=== PATIENT | female | born 1980 | race Caucasian/White ===

== ENCOUNTER 2025-01-22 14:55 | Inpatient (IN) | payer OTHER, SELFPAY ==
--- NOTE | 2025-01-22 | ECG_ITS ---
Test Reason : DIZZINESS Blood Pressure : */* mmHG Vent. Rate : 104 BPM Atrial Rate : 104 BPM P-R Int : 118 ms QRS Dur : 88 ms QT Int : 348 ms P-R-T Axes : 72 54 34 degrees QTcB Int : 457 ms Sinus tachycardia Nonspecific ST and T wave abnormality Abnormal ECG No previous ECGs available Referred By: Generic ED Physician Electronically Signed By: Gino Hilliard
--- NOTE | ~2025-01-22 | CT_ITS ---
CLINICAL HISTORY: abdominal pain --- Additional Notes or Special Instructions: No preg @ 19:55, notified provider CT abdomen and pelvis with contrast Comparison: None provided Findings: Hiatal hernia. Hepatic steatosis. Prior cholecystectomy. Left liver lobe medial segment abutting the ligamentum teres area low attenuation, 1.9 by 1.4 cm; focal fatty infiltration. The left and right kidney asymmetric in enhancement. No nephroliths identified. The spleen pancreas are homogeneous in attenuation. Segmental mural thickening of the ascending and transverse colon. The appendix is within normal limits. The uterus is within normal limits. No acute fracture. IMPRESSION: 1. Hiatal hernia. 2. Hepatic steatosis. 3. Segmental mural thickening of the ascending and transverse colon; nonspecific colitis (bacterial colitis versus inflammatory bowel disease). This document has been electronically signed by: Nahid Fragoso MD on 01/22/2025 22:14:20
[2025-01-22 14:58] VITALS: BP 186/84; PULSE 103; RESP 20; TEMP 37; O2SAT 99; BMI 27.2
[2025-01-22 15:39] LABS: MANUAL DIFF FLAG NO
[2025-01-22 15:48] LABS: Hematocrit 36.5 % (37.0-47.0); Hemoglobin 12.2 g/dl (12.0-16.0); Imm Gran Abs Auto 0.03 X10*3/uL (0.00-0.03); Imm Gran Pct Auto 0.4 % (0.0-0.4); Lymphocytes Absolute Auto 0.3 X10*3/uL (1.2-4.9); Mean Corpuscular HGB Conc 33.4 g/dl (31.0-35.0); Mean Corpuscular Hemoglobin 34.9 pg (27.0-33.0); Mean Corpuscular Volume 104.3 fL (80.0-98.0); NRBC Abs Auto 0.000 X10*3/uL (0.0-0.012); NRBC Pct Auto 0.0 /100WBC (0.0-0.2); Platelet Count 137 X10*3/uL (160-400); Red Blood Count 3.50 X10*6/uL (4.20-5.50); White Blood Count 7.9 X10*3/uL (4.8-10.8)
[2025-01-22 15:55] LABS: COVID-19 Test Negative (Negative); IDNOW Serial# 6674DD1D
[2025-01-22 16:03] LABS: IDNOW Serial# 08D9AD1C; Influenza B2 Negative (Negative)
[2025-01-22 16:24] LABS: Troponin-I High Sensitivity < 2.7 ng/L (<3.5-17.0)
[2025-01-22 16:26] LABS: Alanine Aminotransferase 52 U/L (0-31); Albumin Level 5.1 g/dL (3.5-5.0); Anion Gap 30 (12-20); Aspartate Amino Transferase 188 U/L (5-31); Blood Urea Nitrogen 8 mg/dL (9-16); Calcium 8.2 mg/dL (8.4-10.2); Carbon Dioxide 9 mmol/L (22-29); Chloride 104 mmol/L (96-108); Creatinine Clr Calc Pharmacy 114.8; Estimated Glomerular Filt Rate > 60; Lipase 11 U/L (8-78); Magnesium 2.0 mg/dL (1.6-2.6); Potassium 4.7 mmol/L (3.3-5.1); Sodium 138 mmol/L (135-145); Total Protein 8.1 g/dL (6.5-8.0)
[2025-01-22 17:29] LABS: Alkaline Phosphatase 56 U/L (39-117)
--- NOTE | 2025-01-22 18:30 | ED.GENADULT ---
HPI - General Adult General Chief complaint: General Medical Stated complaint: ultrasound Time Seen by Provider: 01/22/25 18:23 Source: patient Mode of arrival: ambulatory Limitations: no limitations History of Present Illness ED Provider: Dr. Hyde [facility] narrative: 44-year-old female history of alcohol use disorder presented hospital today for evaluation of fatigue, malaise. She had a near syncopal episode here today. She is attending a family event. Patient stated that she has been having nausea and vomiting. She has not been able to eat much food for the past week or so. She has full history of cholecystectomy in the past. Denies any dysuria. He does complain of generalized abdominal pain. Related Data Allergies Allergy/AdvReac Type Severity Reaction Status Date / Time No Known Allergies Allergy Unverified 01/22/25 14:59 Review of Systems Review of Systems: Pertinent review of systems as mentioned in HPI. All other system otherwise negative. [facility] Past Medical History [facility] Narrative: Medical history as mentioned in HPI Social History Social History Smoked in Last 30 Days: No Use of substances other than those prescribed or required for medical reasons: No Advance Directives: No Advance Directives Information Provided: No Patient : No Physical Exam ED Exam Exam: General: Pleasant, no distress, interacting appropriately Head: Normacephalic, atraumatic ENT: oral mucosa moist, neck supple, no tracheal deviation Cardiovascular: Tachycardic rate, regular rhythm, no murmurs, rubbing, gallops Respiratory: Appears tachypneic, CTAB Gastrointestinal: Soft, non distended, generalized abdominal pain on palpation Neurological: Awake and alert, no facial droop noted Skin: Warm and dry Psychiatric: Appropriate mood and thoughts Vital Signs: Vital Signs - 24 hr 01/22/25 14:58 01/22/25 20:07 Temperature 98.6 F 98.4 F Pulse Rate 103 H 106 H Respiratory Rate 20 18 Blood Pressure 186/84 H 158/62 H Pulse Oximetry 99 100 Oxygen Delivery Method Room Air Room Air BMI result Body Mass Index 27.2 Medications Administered Generic Name Dose Route Start Last Admin Trade Name Freq PRN Reason Stop Dose Admin Dextrose/Sodium Chloride 1,000 mls @ 100 mls/hr 01/22/25 22:15 01/22/25 22:29 D51/2ns IVCONT 100 mls/hr .Q10H MARISOL Administration Discontinued Medications Generic Name Dose Route Start Last Admin Trade Name Freq PRN Reason Stop Dose Admin Thiamine HCl 100 mg/ Sodium 101 mls @ 202 mls/hr 01/22/25 18:42 01/22/25 20:07 Chloride IV 01/22/25 19:11 Infused ONCE ONE Infusion Folic Acid 1 mg/ Sodium 50.2 mls @ 100.4 mls/hr 01/22/25 18:42 01/22/25 21:01 Chloride IV 01/22/25 19:11 Infused ONCE ONE Infusion Sodium Chloride 1,000 mls @ 999 mls/hr 01/22/25 19:30 01/22/25 21:34 Ns IV 01/22/25 20:30 Infused .Q1H1M MARISOL Infusion Dextrose 1,000 mls @ 100 mls/hr 01/22/25 21:30 01/22/25 22:25 D10 IVCONT Infused .Q10H MARISOL Infusion Iohexol 100 ml 01/22/25 21:32 01/22/25 21:38 Iohexol 350 Mg/Ml 100 Ml Infus..Btl IV 01/22/25 21:33 85 ml ONCE ONE Administration Metoclopramide HCl 5 mg 01/22/25 18:41 01/22/25 19:04 Metoclopramide Hcl 10 Mg/2 Ml Vial IVPUSH 01/22/25 18:42 5 mg ONCE ONE Administration Sodium Bicarbonate 50 meq 01/22/25 19:07 01/22/25 20:04 Sodium Bicarbonate 8.4% 50 Meq/50 Ml Syringe IVPUSH 01/22/25 19:08 50 meq ONCE ONE Administration Medical Decision Making Medical Decision Making [facility] Narrative: 44-year-old female presented hospital today for evaluation of near syncopal episode nausea vomiting generalized malaise and fatigue. Patient's lab work was significant for metabolic acidosis bicarb of 9. PH is 7.18. Lactic acid is not elevated. I suspect patient is likely tachypneic due to low bicarb. Slightly compensating from respiratory standpoint. An amp of bicarb was given to the patient. Patient does have some signs of elevated ketones. It started the patient on D5 half-normal saline. She did receive a L IV fluid. Patient stated that she is feeling a little bit better at this time. Repeat VBG shows pH is 7.35. Anion gap is closing at 22. Bicarb has climbed to 12. At this time we will plan to admit the patient to the hospital. I think this is anion gap metabolic acidosis secondary to ketosis. Differential Diagnosis Differential Diagnoses: The differential diagnosis associated with the presentation includes Lactic acidosis, ketosis, diabetes, DKA, starvation ketosis Lab Data MDM Lab Attestation statement: I reviewed the patient's lab results. 01/22/25 15:27 01/22/25 23:42 Labs: Lab Results 01/22/25 01/22/25 01/22/25 Range/Units 15:27 18:50 19:00 WBC 7.9 (4.8-10.8) X10*3/uL RBC 3.50 L (4.20-5.50) X10*6/uL Hgb 12.2 (12.0-16.0) g/dl Hct 36.5 L (37.0-47.0) % MCV 104.3 H (80.0-98.0) fL MCH 34.9 H (27.0-33.0) pg MCHC 33.4 (31.0-35.0) g/dl RDW 16.1 H (11.0-16.0) % Plt Count 137 L (160-400) X10*3/uL MPV 8.8 L (9.4-12.3) fL Immature Gran % (Auto) 0.4 (0.0-0.4) % Neut % (Auto) 89.5 H (45-73) % Lymph % (Auto) 3.9 L (20-40) % [place] % (Auto) 5.7 (2-11) % Eos % (Auto) 0.0 (0-4) % Baso % (Auto) 0.5 (0-2) % Lymph # (Auto) 0.3 L (1.2-4.9) X10*3/uL [place] # (Auto) 0.5 (0.1-1.2) X10*3/uL Eos # (Auto) 0.0 (0.0-0.4) X10*3/uL Baso # (Auto) 0.0 (0.0-0.2) X10*3/uL Abs Immat Gran (auto) 0.03 (0.00-0.03) X10*3/uL Absolute Neuts (auto) 7.0 (2.0-8.3) x10*3/uL Absolute Nucleated RBC 0.000 (0.0-0.012) X10*3/uL Nucleated RBC % (auto) 0.0 (0.0-0.2) /100WBC VBG pH 7.18 L* (7.32-7.43) VBG pCO2 26 mmHg VBG pO2 54 mmHg VBG HCO3 10 L (22-26) mmol/L VBG O2 Saturation 71.0 % VBG Base Excess -16.5 mmol/L Sodium 138 (135-145) mmol/L Potassium 4.7 (3.3-5.1) mmol/L Chloride 104 (96-108) mmol/L Carbon Dioxide 9 L* (22-29) mmol/L Anion Gap 30 H (12-20) BUN 8 L (9-16) mg/dL Creatinine 0.64 (0.5-1.4) mg/dL Estim Creat Clear Calc 114.8 Estimated GFR > 60 Random Glucose 96 (60-115) mg/dL Osmolality (281-305) mosm/kg Lactic Acid 1.3 (0.5-2.0) mmol/L Calcium 8.2 L (8.4-10.2) mg/dL Magnesium 2.0 (1.6-2.6) mg/dL Total Bilirubin 1.6 H (0.0-1.0) mg/dL AST 188 H (5-31) U/L ALT 52 H (0-31) U/L Alkaline Phosphatase 56 (39-117) U/L Troponin I High Sens < 2.7 (<3.5-17.0) ng/L Total Protein 8.1 H (6.5-8.0) g/dL Albumin 5.1 H (3.5-5.0) g/dL Lipase 11 (8-78) U/L Beta-Hydroxybutyrate 9.89 H (0.02-0.27) mmol/L Beta HCG, Quant < 2 mIU/mL Urine Color Urine Appearance Urine pH (5.0-9.0) Ur Specific [place] (1.005-1.025) Urine Protein (Neg-Trace) mg/dL Urine Glucose (UA) (Negative) mg/dL Urine Ketones (Negative) mg/dL Urine Blood (Negative) Urine Nitrite (Negative) Ur Leukocyte Esterase (Negative) Urine RBC (0-2) /HPF Urine WBC (0-5) /HPF Ur Squamous Epith Cells (0-2) /HPF Urine Bacteria (None Seen) Hyaline Casts (0-2) /LPF Salicylates (15-30) mg/dL Ethyl Alcohol < 10 mg/dL COVID-19 (DEMARCO) Negative (Negative) COVID-19 Clin Com See Note Influenza Type A (ISAIAS) Negative (Negative) Influenza Type B (ISAIAS) Negative (Negative) Influenza A & B Note See Note 01/22/25 01/22/25 01/22/25 Range/Units 20:43 20:48 20:54 WBC (4.8-10.8) X10*3/uL RBC (4.20-5.50) X10*6/uL Hgb (12.0-16.0) g/dl Hct (37.0-47.0) % MCV (80.0-98.0) fL MCH (27.0-33.0) pg MCHC (31.0-35.0) g/dl RDW (11.0-16.0) % Plt Count (160-400) X10*3/uL MPV (9.4-12.3) fL Immature Gran % (Auto) (0.0-0.4) % Neut % (Auto) (45-73) % Lymph % (Auto) (20-40) % [place] % (Auto) (2-11) % Eos % (Auto) (0-4) % Baso % (Auto) (0-2) % Lymph # (Auto) (1.2-4.9) X10*3/uL [place] # (Auto) (0.1-1.2) X10*3/uL Eos # (Auto) (0.0-0.4) X10*3/uL Baso # (Auto) (0.0-0.2) X10*3/uL Abs Immat Gran (auto) (0.00-0.03) X10*3/uL Absolute Neuts (auto) (2.0-8.3) x10*3/uL Absolute Nucleated RBC (0.0-0.012) X10*3/uL Nucleated RBC % (auto) (0.0-0.2) /100WBC VBG pH 7.22 L (7.32-7.43) VBG pCO2 27 mmHg VBG pO2 64 mmHg VBG HCO3 11 L (22-26) mmol/L VBG O2 Saturation 87.0 % VBG Base Excess -14.3 mmol/L Sodium 137 (135-145) mmol/L Potassium 4.1 (3.3-5.1) mmol/L Chloride 107 (96-108) mmol/L Carbon Dioxide 9 L* (22-29) mmol/L Anion Gap 25 H (12-20) BUN 6 L (9-16) mg/dL Creatinine 0.70 (0.5-1.4) mg/dL Estim Creat Clear Calc 104.9 Estimated GFR > 60 Random Glucose 97 (60-115) mg/dL Osmolality (281-305) mosm/kg Lactic Acid (0.5-2.0) mmol/L Calcium 7.6 L D (8.4-10.2) mg/dL Magnesium (1.6-2.6) mg/dL Total Bilirubin (0.0-1.0) mg/dL AST (5-31) U/L ALT (0-31) U/L Alkaline Phosphatase (39-117) U/L Troponin I High Sens (<3.5-17.0) ng/L Total Protein (6.5-8.0) g/dL Albumin (3.5-5.0) g/dL Lipase (8-78) U/L Beta-Hydroxybutyrate (0.02-0.27) mmol/L Beta HCG, Quant mIU/mL Urine Color Yellow Urine Appearance Clear Urine pH 6.0 (5.0-9.0) Ur Specific [place] 1.020 (1.005-1.025) Urine Protein 30 (1+) H (Neg-Trace) mg/dL Urine Glucose (UA) Negative (Negative) mg/dL Urine Ketones >=160 (Negative) mg/dL Urine Blood Moderate (2+) H (Negative) Urine Nitrite Negative (Negative) Ur Leukocyte Esterase Negative (Negative) Urine RBC 11-20 H (0-2) /HPF Urine WBC 0-5 (0-5) /HPF Ur Squamous Epith Cells 0-2 (0-2) /HPF Urine Bacteria None Seen (None Seen) Hyaline Casts 0-2 (0-2) /LPF Salicylates (15-30) mg/dL Ethyl Alcohol mg/dL COVID-19 (DEMARCO) (Negative) COVID-19 Clin Com Influenza Type A (ISAIAS) (Negative) Influenza Type B (ISAIAS) (Negative) Influenza A & B Note 01/22/25 01/22/25 Range/Units 23:42 23:48 WBC (4.8-10.8) X10*3/uL RBC (4.20-5.50) X10*6/uL Hgb (12.0-16.0) g/dl Hct (37.0-47.0) % MCV (80.0-98.0) fL MCH (27.0-33.0) pg MCHC (31.0-35.0) g/dl RDW (11.0-16.0) % Plt Count (160-400) X10*3/uL MPV (9.4-12.3) fL Immature Gran % (Auto) (0.0-0.4) % Neut % (Auto) (45-73) % Lymph % (Auto) (20-40) % [place] % (Auto) (2-11) % Eos % (Auto) (0-4) % Baso % (Auto) (0-2) % Lymph # (Auto) (1.2-4.9) X10*3/uL [place] # (Auto) (0.1-1.2) X10*3/uL Eos # (Auto) (0.0-0.4) X10*3/uL Baso # (Auto) (0.0-0.2) X10*3/uL Abs Immat Gran (auto) (0.00-0.03) X10*3/uL Absolute Neuts (auto) (2.0-8.3) x10*3/uL Absolute Nucleated RBC (0.0-0.012) X10*3/uL Nucleated RBC % (auto) (0.0-0.2) /100WBC VBG pH 7.35 (7.32-7.43) VBG pCO2 22 mmHg VBG pO2 106 mmHg VBG HCO3 12 L (22-26) mmol/L VBG O2 Saturation 100.0 % VBG Base Excess -10.7 mmol/L Sodium 139 (135-145) mmol/L Potassium 4.1 (3.3-5.1) mmol/L Chloride 109 H (96-108) mmol/L Carbon Dioxide 12 L (22-29) mmol/L Anion Gap 22 H (12-20) BUN 6 L (9-16) mg/dL Creatinine 0.65 (0.5-1.4) mg/dL Estim Creat Clear Calc 113.0 Estimated GFR > 60 Random Glucose 124 H (60-115) mg/dL Osmolality 299 (281-305) mosm/kg Lactic Acid (0.5-2.0) mmol/L Calcium 7.9 L (8.4-10.2) mg/dL Magnesium (1.6-2.6) mg/dL Total Bilirubin (0.0-1.0) mg/dL AST (5-31) U/L ALT (0-31) U/L Alkaline Phosphatase (39-117) U/L Troponin I High Sens (<3.5-17.0) ng/L Total Protein (6.5-8.0) g/dL Albumin (3.5-5.0) g/dL Lipase (8-78) U/L Beta-Hydroxybutyrate (0.02-0.27) mmol/L Beta HCG, Quant mIU/mL Urine Color Urine Appearance Urine pH (5.0-9.0) Ur Specific [place] (1.005-1.025) Urine Protein (Neg-Trace) mg/dL Urine Glucose (UA) (Negative) mg/dL Urine Ketones (Negative) mg/dL Urine Blood (Negative) Urine Nitrite (Negative) Ur Leukocyte Esterase (Negative) Urine RBC (0-2) /HPF Urine WBC (0-5) /HPF Ur Squamous Epith Cells (0-2) /HPF Urine Bacteria (None Seen) Hyaline Casts (0-2) /LPF Salicylates < 5.0 L (15-30) mg/dL Ethyl Alcohol mg/dL COVID-19 (DEMARCO) (Negative) COVID-19 Clin Com Influenza Type A (ISAIAS) (Negative) Influenza Type B (ISAIAS) (Negative) Influenza A & B Note Critical Care Time Critical Care Time Critical Care Time: Yes Total Critical Care Time: 40 Attestation: Time is exclusive of separately billable procedures. Time includes: direct patient care, patient reassessment, coordination of patient care, interpretation of data (laboratory data, pulse oximetry, arterial blood gases and chest xrays), review of patient's medical records, medical consultation and documentation of patient care. Procedures excluded from critical care time: central intravenous line placement and electrocardiography. Discharge Plan Discharge Clinical Impression: Alcoholic ketosis, Metabolic acidosis, High anion gap Patient Disposition: Admitted As Inpatient Print Language: Samoan
[2025-01-22] MEDS: Thiamine HCL 100 MG in 0.9 % Sodium Chloride 100 ML 202 MG IV (19:00)
[2025-01-22 19:08] LABS: Venous Blood Gas Refer to POC result
[2025-01-22 19:10] LABS: VBG HCO3 10 mmol/L (22-26); VBG O2 % Saturation 71.0 %
--- NOTE | 2025-01-22 19:15 | PC.NURSE ---
assumed care of pt, IV line intact and patent on L AC, pt denies pain at this time. provider at bedside.
--- OUTSIDE RECORDS SUMMARY | 2025-01-22 19:32 | XMS_ITS | Clinical Summary ---
Author Organization [facility] Address [address] [place] [address] [place] [phone] Phone Care Team Providers Care Civil Engineer In Training Name Role Phone Unknown, Unknown Primary Care Provider Gautam quick Allergies No known active allergies Medications buPROPion (WELLBUTRIN XL) 300 MG ER 24 hr tabletIndications :Reactive depression Take 1 tablet (300 mg total) by mouth every morning. 90 tablet 3 Active medroxyPROGESTERo ne (DEPO-PROVERA) 150 mg/mL Syrg IM injection syringeIndication s: control counseling Inject 1 mL (150 mg total) into the muscle every 3 (three) months. 1 mL 1 3 Active cholecalciferol (VITAMIN D3) 2,000 unit capsule Take 1 capsule (2,000 Units total) by mouth daily. 90 capsule 3 3 Active ARIPiprazole (ABILIFY) 2 MG tabletIndications :Generalized anxiety disorder,Moderate episode of recurrent major depressive disorder take one tablet by mouth every day 90 tablet 3 4 Active sertraline (ZOLOFT) 100 MG tablet Take 1.5 tablets (150 mg total) by mouth daily. 135 tablet 3 4 Active LORazepam (ATIVAN) 0.5 MG tabletIndications :Generalized anxiety disorder Take 1 tablet (0.5 mg total) by mouth as directed. 2 x week prn 10 tablet 4 Active semaglutide (OZEMPIC) 0.25 mg or 0.5 mg (2 mg/3 mL) subcutaneous injection penIndications:Di et-controlled diabetes mellitus Inject 0.5 mg under the skin every 7 days. 3 mL 2 4 Active Active Problems Problem Noted Date Diagnosed Date Diet-controlled diabetes mellitus 10/01/2022 Generalized anxiety disorder 09/19/2017 Overweight 09/19/2017 Rectocele 05/28/2017 EWA (stress urinary incontinence, female) 2017 Constipation 05/28/2017 Recurrent major depressive disorder, in full rem ission 02/07/2017 Obesity 02/07/2017 Resolved Problems Problem Noted Date Diagnosed Date Resolved Date Vaginal delivery 02/18/2017 05/28/2017 Post-term , 40-42 weeks of gestation 02/14/20 17 05/28/2017 Multigravida of advanced maternal age 1102/07/2017 05/28/2017 Encounter for supervision of normal in third trimester 02/07/2017 05/28/2017 Immunizations Immunization Administration Dates Next Due Hep A-Hep B 05/12/2012,04/29/2012,01/01/2012 INFLUENZA, SPLIT VIRUS, TRIV ALENT W/ PRESERVATIVE IM 05/11/2014,12/20/2011 Influenza Quadrivalent Preservative Free IM 12/07,01/29/2018 Influenza, Unspecified Formulation 01/09/2017 PPD Test 04/21/2018 Tdap 01/16/2017,12/20/2011 Family History Medical History Relation Comments No Known Problems Daughter No Known Problems Father No Known Problems Mother Seizures Son 1 No Known Problems Son 2 Breast cancer Neg Hx Relation Status Comments Daughter Alive Father Alive Mother Alive Son 1 Alive Son 2 Alive Social History Tobacco Use Types Packs/Day Years Used Date Smoking Tobacco: Former Cigarettes 0.3 23.9 1 993 - 02/18/2016 Passive Smoke Exposure: Never Smokeless Tobacco: Never Tobacco Cessation:Counseling Given: Not Answered Alcohol Use Standard Drinks/Week Comments Yes 0 (1 standard drink = 0.6 oz pur e alcohol) 3 drinks, beer, 2 x month Child or Family Care Answer Date Record ed Do you have problems with on e of the following making it difficult for you to work, study, or receive health care? No 12/12/2022 Education Answer Date Recorded Are you interested in more education? Not on mikhail e 12/21/2024 Are you concerned about learning? Not on file 12/21/2024 No 12/21/2024 No 12/21/2024 Food Answer Date Recorded Within the past 6 months we worried whether our food would run out before we got money to buy more. Never True 12/12/2022 Within the past 6 months the food we bought just didn't last and we didn't have enough money to get more. Never True Residential Stability Answer Date Recor ded What is your housing situation today? I have derick sing 12/12/2022 How many times have you move d in the past 12 months? Zero (I did not move) 12/12/2022 Paying for Meds Answer Date Recorded Do you have trouble paying for medicines? No 12/12/2022 Paying Utility Bills Answer Date Record ed Do you have trouble paying your heating or elect ricity bill? No 12/12/2022 Transportation Answer Date Recorded Has the lack of transportati on kept you from medical appointments or from getting medications? No 12/12/2022 Unemployment Answer Date Recorded Are you currently unemployed or working on a part-time or temporary basis, and looking for work? Yes 12/12/2022 Digital Access Answer Date Recorded No 12/21/2024 No 12/21/2024 Reliable internet access at home? Not on file 12/21/2024 Device with a working camera? Not on file SNAP & WIC Answer Date Recorded Do you receive benefits from SNAP (the Supplemental Nutrition Assistance Program) or the Food Stamp Program? Yes 12/12/2022 SNAP is a free program, interested in learning m ore? Not on file 12/12/2022 Can we help you enroll in SNAP? Not on file 12/12/2022 Do you receive benefits from WIC (the Special Supplemental Nutrition Program for Women, Infants, and Children)? No 0 12/12/2022 WIC is a free program that c an provide you and your family with healthy foods, nutrition education, and more. Even if you are already part of the SNAP nutrition program, you can still apply for WIC benefits. Would you be interested in learning more? No 12/12/2022 Can we help you enroll in WIC? Not on file 0 12/12/2022 Intimate Partner Violence Answer Date R ecorded Denied Basic Needs Not on file 12/12/2022 In the past 12 months have y ou been in a relationship with a person who hurts, threatens, or tries to control you? No 12/12/2022 Worried food would run out Not on file 12/12 In the past 12 months have y ou been in a relationship with a person who hurts, threatens, or tries to control you? 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 Not on file Last Filed Vital Signs Vital Sign Reading Time Taken Comments Blood Pressure 132/88 12/12/2022 3:16 PM EDT Pulse 95 12/12/2022 3:16 PM EDT Temperature 37.1 C (98.7 F) 12/12/2022 3:16 PM EDT Respiratory Rate 16 11/10/2020 9:56 AM EDT Oxygen Saturation 98% 12/12/2022 3:16 PM EDT Inhaled Oxygen Concentration - - Weight 108.4 kg (239 lb) 12/12/2022 3:16 PM EDT Height 172.7 cm (5' 7.99 ) 12/12/2022 3:16 PM ED T Body Mass Index 36.35 12/12/2022 3:16 PM EDT Plan of Treatment Health Maintenance Due Date Last Done Comments HEMOGLOBIN A1C 1978 SMOKING Hx and SMOKELESS TOBACCO SCREENING 07/09/1991 PNEUMOCOCCAL VACCINES (0-49 years) (1 of 2 - PCV) 1997 MAMMOGRAM 06/27/2022 06/27/2020 DIABETIC EYE EXAM 10/01/2022 URINE MICROALBUMIN/CREATININE RATIO 10/01/2022 07/16/2017 BLOOD PRESSURE 06/12/2023 12/12/2022 COLOGUARD 07/09/2023 COLONOSCOPY 07/09/2023 COLORECTAL CANCER SCREENING 07/09/2023 FIT TEST 07/09/2023 FOBT 07/09/2023 SIGMOIDOSCOPY 07/09/2023 VIRTUAL COLONOSCOPY 07/09/2023 DEPRESSION SCREENING 12/13/2023 12/12/2022, 06/21/19 21 LIPID PANEL 12/13/2023 12/12/2022, 10/2022, 05/30/2020 PAP SMEAR 02/23/2024 02/22/2019, 02/05, 07/09/2012, Additional history exists INFLUENZA VACCINE (#1) 2024 0, 01/29/2018, 01/09/2017, Additional history exists COVID-19 VACCINE ( season) 2024 Adult Td,Tdap Booster 01/16/2027 01/16/2017, 012 HEPATITIS A VACCINES Aged Out 05/12/2012, 04/29/2012, 01/01/2012 No longer eligible based on patient's age to complete this topic HEPATITIS C SCREENING Completed 07/22/2016 HIV ONE-TIME SCREENING (18-65 YEARS) Completed 07/22/2016 HIB VACCINES Aged Out No longer eligi ble based on patient's age to complete this topic MENINGOCOCCAL VACCINES (ACWY) Aged Out No longer eligible based on patient's age to complete this topic MENINGOCOCCAL VACCINES (B) Aged Out N o longer eligible based on patient's age to complete this topic Medical Devices Not on file Procedures Procedure Name Priority Date/Time Associated Diagnosis Comments LIPID PANEL Routine 12/12/2022 3:59 PM EDT Diet-controlled diabetes mellitus BI MAMMOGRAM SCREENING WITH TOMOSYNTHESIS WITH CAD (BILATERAL) Routine 06/27/2020 1:26 PM EDT Encounter for screening mammogram for malignant neoplasm of breast PAP TEST Routine 02/22/2019 12:00 AM EST OUTSIDE HIV Routine 07/22/2016 from Last 3 Months or Most Recently Relevant to Health Maintenance Results * (ABNORMAL) Lipid panel (12/12/2022 3:59 PM EDT) HDL 62 mg/dL Comment: Interpretation <40 mg/dL: Low HDL cholesterol (major risk factor for CHD) Greater than or equal to 60 mg/dL: High HDL cholesterol ( negative risk factor for CHD) HDL - cholesterol is affected by a number of factors, e.g. smoking, excerise, hormones, sex and age. CHOLESTEROL 225 0 - 240 mg/dL TRIGLYCERIDES 205(H) 30 - 160 mg/dL LDL 122 50 - 129 mg/dL Comment: LDL levels in terms of risk for coronary heart disease: <100 mg/dL: Optimal 100-129 mg/dL: Near or above optimal 130-159 mg/dL: Borderline high 160-189 mg/dL: High >190 mg/dL: Very High CARDIAC RISK RATIO 3.6 3.3 - 4.4 C [facility] Blood 12/12/2022 3:59 PM EDT 12/12/2022 4:04 PM EDT us Elli Amador NP LAB BLOOD ORDERABLES Final Resu lt [address] [address] * BI MAMMOGRAM SCREENING WITH TOMOSYNTHESIS WITH CAD (BILATERAL) (06/27/2020 1:26 PM EDT) Anatomical Region Laterality Modality Breast Left, Breast Right, Breast Bilateral Bila teral Mammography 06/27/2020 6:38 PM EDT Impressions 06/27/2020 6:41 PM EDT BILATERAL BREASTS: Negative, no evidence of malignancy. Normal interval follow- up is recommended in 12 months. Bi-RADS: BI-RADS CATEGORY: 1 - Negative. DENSITY: There are scattered fibroglandular densities. Narrative 06/27/2020 6:41 PM EDT STUDY: Bilateral screening mammography with tomosynthesis and CAD TECHNIQUE: Bilateral full-field digital screening mammography is obtained and read in conjunction with computer-aided detection. Tomosynthesis as well as 2-D C view imaging were obtained. COMPARISON: None. This is a baseline study. BREAST COMPOSITION: There are scattered areas of fibroglandular density BILATERAL BREASTS: No significant masses, suspicious calcifications or other abnormalities are seen. Procedure Note Rebecca Bartholomew MD - 06/27/2020 STUDY: Bilateral screening mammography with tomosynthesis and CAD TECHNIQUE: Bilateral full-field digital screening mammography is obtainedand read in conjunction with computer-aided detection. Tomosynthesis aswell as 2-D C view imaging were obtained. COMPARISON: None. This is a baseline study. BREAST COMPOSITION: There are scattered areas of fibroglandulardensity BILATERAL BREASTS: No significant masses, suspicious calcifications orother abnormalities are seen. IMPRESSION: BILATERAL BREASTS: Negative, no evidence of malignancy. Normal intervalfollow-up is recommended in 12 months. Bi-RADS: BI-RADS CATEGORY: 1 - Negative. DENSITY: There are scattered fibroglandular densities. 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 CERVICAL, LIQUID BASED SPECIMEN: SPECIMEN ADEQUACY: Satisfactory for evaluation. INTERPRETATION: NEGATIVE FOR INTRAEPITHELIAL LESION OR MALIGNANCY. ADDITIONAL INFORMATION: Consistent with menstrual specimen. This specimen was prescreened using the ArthroCAD Imaging System. Electronically Signed Out By: VESNA Calle(ASCP)FAMILIA Cervical cytology is a screening test primarily for squamous cancers and precursors and has associated false-negative and false-positive results. New technologies such as liquid-based preparations may decrease but will not eliminate all false-negative results. Regular sampling and follow-up of unexplained clinical signs and symptoms are recommended to minimize false negative results. PROCEDURES/ADDENDA HPV Testing (Requested) Ordered Date: 02/23/2019 A. CERVICAL, LIQUID BASED SPECIMEN: Human Papilloma Virus Test Negative for high-risk human papillomavirus types 16, 18, 45 and the Other high risk probe set (Includes 31, 33, 35, 39, 51, 52, 56, 58, 59, 66, 68) by directworx Onclarity HR-HPV analysis. Clinical correlation is advised. This HPV test was performed at [facility], [address] [place] [address]. This test has been FDA approved for SurePath cervical cytology specimens. The accuracy and precision of this test for all other specimen sources has been verified in the Cytopathology Laboratory of the [facility] and has not been cleared or approved by the U.S. Food and Drug Administration. Clinical correlation is advised. CLINICAL HISTORY Date of Last Menstrual Period: 02-22-2019 Other Clinical Conditions: Screening Pap SPECIMEN SOURCE A: CERVICAL, LIQUID BASED SPECIMEN Nimco Shukla [facility] CYTOLOGY ORDERABLES Final Re sult SEE NARRATIVE * OUTSIDE HIV TEST (07/22/2016) HIV - External Neg Historical Provider LAB BLOOD ORDERABLES Geno l Result from Last 3 Months or Most Recently Relevant to Health Maintenance Insurance [facility] A[facility] [place] [place] [id number] [facility] [place] [address] [address] [place] [address] ACO Advance Directives For more information, please contact: [phone] (9AM - 5PM Nathaly/[facility], Friday-Friday) Documents on File Type Date Recorded 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 Healthcare 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 02/20/2017 9:05 AM * Full Code (Presumed) (Latest Code Status on File) Date Activated Date Inactivated Comments 02/17/2017 1:07 AM 02/18/2017 2:55 PM * Full Code (Presumed) Date Activated Date Inactivated Comments 02/17/2017 1:03 AM 02/17/2017 1:07 AM Healthcare Agents on File Name Relationship Healthcare Agent Relationshi p Communication Ignacio Garcia Life Partner .Primary Health Care Agent (Proxy form on file) Care Teams Civil Engineer In Training Relationship Specialty Start Date End Date Unknown, Unknown, PCP - General 07/04/23 Additional Source Comments The information contained in this document represents components of the legal health record. It is not the complete legal health record.[facility]
--- OUTSIDE RECORDS SUMMARY | 2025-01-22 19:32 | XMS_ITS | Encounter Summary ---
Author Organization [facility] Address [address] [facility] [address] [place] [phone] Phone Care Team Providers Care Senior Consulting Manager Name Role Phone Elli Amador NP Primary Care Provider [phone] Sharmaine Keyes MD Unavailable Unknown, Unknown Primary Care Provider Gautam quick Encounter Details Date Type Department Care Team (Late st Contact Info) Description 04/28/2017 Procedure Pass [facility], Ct Scan - [address] [address] Social History Tobacco Use Types Packs/Day Years Used Date Smoking Tobacco: Former Cigarettes 0.1 7 1 04/19/2008 - 02/18/2016 Smokeless Tobacco: Never Alcohol Use Standard Drinks/Week Comments No 0 (1 standard drink = 0.6 oz pur e alcohol) Comments No Sex and Gender Information Value Date Recorded Sex Assigned at Female 04/14/2017 9:38 AM EST Legal Sex Female 9:24 PM EDT Gender Identity Female 04/14/2017 9:38 AM EST Sexual Orientation Straight 04/14/2017 9: 38 AM EST 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 Not on file documented as of this encounter Plan of Treatment Not on file documented as of this encounter Visit Diagnoses Not on filedocumented in this encounter Additional Health Concerns Infection Onset Date Last Indicated Resolved Time CoV-Risk 01/13/2020 01/14/2020 01/27/2020 1:24 AM EDT Assessment Noted Time PHQ-2 Depression Total Score: 0 03/03/20 17 11:52 AM EST documented as of this encounter Care Teams Senior Consulting Manager Relationship Specialty Start Date End Date Elli Amador NP [email or web address] PCP - General Family Medicine 04/28/17 07/03/23 Unknown, Unknown, MD PCP - General 07/04/23 Sharmaine Keyes MD [address] [place] [phone] [email or web address] Insurance Assigned Provider 08/11/19 09/10/20 documented as of this encounter Additional Source Comments The information contained in this document represents components of the legal health record. It is not the complete legal health record.[facility]
--- OUTSIDE RECORDS SUMMARY | 2025-01-22 19:32 | XMS_ITS | Encounter Summary ---
Author Organization [facility] Address [address] [facility] [address] [place] [phone] Phone Care Team Providers Care Vice President Residential Solar Sales Name Role Phone Elli Amador NP Primary Care Provider [phone] Sharmaine Keyes MD Unavailable Unknown, Unknown Primary Care Provider Gautam quick Encounter Details Date Type Department Care Team (Late st Contact Info) Description 02/03/2020 Procedure Pass [facility], [facility] [address] [place] [address] Social History Tobacco Use Types Packs/Day Years Used Date Smoking Tobacco: Former Cigarettes 0.1 7 1 04/19/2008 - 02/18/2016 Smokeless Tobacco: Never Alcohol Use Standard Drinks/Week Comments Yes 0 (1 standard drink = 0.6 oz pur e alcohol) 3 drinks, beer, 2 x month Comments No Sex and Gender Information Value [...] filedocumented in this encounter Additional Health Concerns Assessment Noted Time PHQ-9 Depression Total Score: 14 021 1:09 PM EDT PHQ-2 Depression Total Score: 4 06/21/19 21 1:09 PM EDT documented as of this encounter Care Teams Vice President Residential Solar Sales Relationship Specialty Start Date End Date Elli Amador NP [email or web address] PCP - General Family Medicine 04/28/17 07/03/23 Unknown, Dashawn, PCP - General 07/04/23 Sharmaine Keyes MD [address] [place] [phone] [email or web address] Insurance Assigned Provider 08/11/19 09/10/20 documented as of this encounter Additional Source Comments The information contained in this document represents components of the legal health record. It is not the complete legal health record.[facility]
[2025-01-22 20:07] VITALS: BP 158/62; PULSE 106; RESP 18; TEMP 36.9; O2SAT 100
--- NOTE | 2025-01-22 20:21 | PC.NURSE ---
pt medicated per MAR.
[2025-01-22 20:58] LABS: VBG HCO3 11 mmol/L (22-26); VBG O2 % Saturation 87.0 %
[2025-01-22 21:02] LABS: Venous Blood Gas Refer to POC result
[2025-01-22 21:02] LABS: Appearance Urine Clear; Glucose Urine UA Negative (Negative); PH 6.0 (5.0-9.0); Specific Gravity - Urine 1.020 (1.005-1.025); UMIC TRIGGER UACC YES
[2025-01-22 21:11] LABS: Anion Gap 25 (12-20); Blood Urea Nitrogen 6 mg/dL (9-16); Calcium 7.6 mg/dL (8.4-10.2); Carbon Dioxide 9 mmol/L (22-29); Chloride 107 mmol/L (96-108); Creatinine Clr Calc Pharmacy 104.9; Estimated Glomerular Filt Rate > 60; Potassium 4.1 mmol/L (3.3-5.1); Sodium 137 mmol/L (135-145)
[2025-01-22] MEDS: iohexoL 350 MG/ML 100 ML INFUS..BTL IV (21:38)
[2025-01-22] MEDS: Dextrose 10 % 1,000 ML 100 ML IVCONT (21:44)
[2025-01-22] MEDS: Dextrose 5 % and 0.45 % NaCl 1,000 ML 100 ML IVCONT (22:29)
[2025-01-22 23:58] LABS: Venous Blood Gas Refer to POC result
[2025-01-23] LABS: VBG HCO3 12 mmol/L (22-26); VBG O2 % Saturation 100.0 %
[2025-01-23 00:08] LABS: Osmolality, Serum 299 mosm/kg (281-305)
[2025-01-23 00:24] LABS: Anion Gap 22 (12-20); Blood Urea Nitrogen 6 mg/dL (9-16); Calcium 7.9 mg/dL (8.4-10.2); Carbon Dioxide 12 mmol/L (22-29); Chloride 109 mmol/L (96-108); Creatinine Clr Calc Pharmacy 113.0; Estimated Glomerular Filt Rate > 60; Potassium 4.1 mmol/L (3.3-5.1); Salicylate < 5.0 mg/dL (15-30); Sodium 139 mmol/L (135-145)
--- NOTE | 2025-01-23 00:57 | PM.IMHP ---
History of Present Illness Date of Service: 01/23/25 Attending physician on admission: Luciano Kovacs Chief Complaint: Dizziness Massiel Garcia is a very pleasant 44 years old woman with history of depression and anxiety, not currently taking medications presents to the emergency department after she almost fainted today upon standing up while watching daughter melvi ospina. She also mentioned that she vomited in the morning. Since she has been feeling tired and has been sleeping more than usual. Denied worsening diarrhea, but her stools has been chronically soft. She reported some mild shortness on breath and denied chest pain. Also had an episode pelvic pain. Her last menstrual period finish last week. She has been very weak and has not been eating well lately. Also reported some weight loss. She drinks vodka daily 8-10 shots. Last alcoholic drink was last night. She denied illicit drug use or tobacco smoking. Abdominal surgery history is remarkable for cholecystectomy. She has a history of nephrolithiasis. Denied bloody urine. Has been having urinary frequency. In the ED, she was found to have hypertension and sinus tachycardia. Temperature and oxygen saturation and normal. Blood workup showed no leukocytosis. Hemoglobin is 12.7, MCV 104.3 and platelets 137. Initial pH was 7.18, then 7.22 -> 7.35. CO2 was initially 9 and most recently, 12. Anion gap is elevated. BUN is 6 and creatinine 0.65. LFTs are elevated. Beta hydroxybutyrate is 9 point 89 and test is negative. Blood osmolality is 299. UA showed protein 1+, blood 2+ and RBC 11-20. Testing for COVID-19, influenza are negative. ED tx: Reglan 5 mg IV, thiamine 100 mg IV, folic acid 1 g IV, bicarb 8.4% 50 mEq IV push, NS 1 L bolus, D5/0.45 100 mL/hour Review of Systems Review of Systems: All 12 systems were reviewed and normal except as noted in HPI. PMFSH Social History Patient Tobacco Use Status: Never used Tobacco Smoked in Last 30 Days: No Use of substances other than those prescribed or required for medical reasons: No Advance Directives: No Advance Directives Information Provided: No Nutrition Risks: No Nutritional Risk Patient : No Meds Allergies Allergy/AdvReac Type Severity Reaction Status Date / Time No Known Allergies Allergy Unverified 01/22/25 14:59 Active Medications: Current Medications Acetaminophen (Acetaminophen 325 Mg Tablet) 650 mg PO Q6H PRN PRN Reason: Pain, Mild 1-3,fever,headache Calcium Carbonate (Calcium Carbonate 750 Mg Tab.Chew) 750 mg PO Q4H PRN PRN Reason: Heartburn Enoxaparin Sodium (Enoxaparin Sodium 40 Mg/0.4 Ml Syringe) 40 mg SUBCUT Q24H [facility] Hydromorphone HCl (Hydromorphone Hcl 1 Mg/Ml Syringe) 0.5 mg IVPUSH Q4H PRN; Protocol PRN Reason: Pain, Severe (Pain Scale 7-10) Dextrose/Sodium Chloride (D51/2ns) 1,000 mls @ 125 mls/hr IVCONT .Q8H [facility] Thiamine HCl 100 mg/ Sodium (Chloride) 101 mls @ 202 mls/hr IV DAILY [facility] Folic Acid 1 mg/ Sodium (Chloride) 50.2 mls @ 100.4 mls/hr IV DAILY [facility] Magnesium Hydroxide (Milk Of Magnesia 30 Ml Oral.Susp) 30 ml PO DAILY PRN PRN Reason: Constipation Melatonin (Melatonin 3 Mg Tablet) 6 mg PO BEDTIME PRN PRN Reason: Insomnia Multivitamins/Vitamin C (Multivitamin Tablet) 1 tab PO BEDTIME [facility] Ondansetron HCl (Ondansetron Hcl 4 Mg/2 Ml Vial) 4 mg IVPUSH Q8H PRN PRN Reason: Nausea and Vomiting Sodium Chloride (0.9 % Sodium Chloride Flush 3 Ml Syringe) 3 ml IVFLUSH QSHIFT [facility] Physical Exam Vital Signs and Narrative: Vital Signs: Last Vital Signs Temp 98.4 F 01/22/25 20:07 Pulse 106 H 01/22/25 20:07 Resp 18 01/22/25 20:07 BP 158/62 H 01/22/25 20:07 Pulse Ox 100 01/22/25 20:07 O2 Del Method Room Air 01/22/25 20:07 BMI result Body Mass Index 27.2 General: Alert, oriented, in no acute distress. Well nourished and cooperative. Pleasant. Afebrile. HEENT: Head normocephalic, atraumatic. PER, EOMI. Sclerae anicteric, conjunctiva clear. Oropharynx without erythema or exudate. Mucous membranes moist. Neck: Supple, no lymphadenopathy, or JVD. Heart: RRR, no murmurs, rubs or gallops. Lungs: Clear to auscultation bilaterally. No wheezes, rales, or rhonchi. Normal respiratory effort. Abdomen: Soft, non tenderness, nondistended, normoactive bowel sounds. No hepatosplenomegaly, masses or masses. Extremities: No calf tenderness bilaterally, no swelling Musculoskeletal: Full range of motion. No joint swelling, deformity, or tenderness. Normal muscle tone and strength. Skin: Warm/Dry. No pallor. No jaundice. Neurologic: Alert & oriented x4. Moving all extremities spontaneously. Normal speech. Psychological: Depressed mood and affect. Thought process coherent. Results Labs 01/22/25 15:27 01/22/25 23:42 Labs: Laboratory Results - last 24 hr 01/22/25 01/22/25 01/22/25 15:27 18:50 19:00 MCV 104.3 H MCH 34.9 H MCHC 33.4 RDW 16.1 H Plt Count 137 L MPV 8.8 L Immature Gran % (Auto) 0.4 Neut % (Auto) 89.5 H Lymph % (Auto) 3.9 L [place] % (Auto) 5.7 Eos % (Auto) 0.0 Baso % (Auto) 0.5 Lymph # (Auto) 0.3 L [place] # (Auto) 0.5 Eos # (Auto) 0.0 Baso # (Auto) 0.0 Abs Immat Gran (auto) 0.03 Absolute Neuts (auto) 7.0 Absolute Nucleated RBC 0.000 Nucleated RBC % (auto) 0.0 VBG pH 7.18 L* VBG pCO2 26 VBG pO2 54 VBG HCO3 10 L VBG O2 Saturation 71.0 VBG Base Excess -16.5 Anion Gap 30 H Estim Creat Clear Calc 114.8 Estimated GFR > 60 Random Glucose 96 Osmolality Lactic Acid 1.3 Calcium 8.2 L Magnesium 2.0 Total Bilirubin 1.6 H AST 188 H ALT 52 H Alkaline Phosphatase 56 Troponin I High Sens < 2.7 Total Protein 8.1 H Albumin 5.1 H Lipase 11 Beta-Hydroxybutyrate 9.89 H Beta HCG, Quant < 2 Urine Color Urine Appearance Urine pH Ur Specific [place] Urine Protein Urine Glucose (UA) Urine Ketones Urine Blood Urine Nitrite Ur Leukocyte Esterase Urine RBC Urine WBC Ur Squamous Epith Cells Urine Bacteria Hyaline Casts Salicylates Ethyl Alcohol < 10 COVID-19 (DEMARCO) Negative COVID-19 Clin Com See Note Influenza Type A (ISAIAS) Negative Influenza Type B (ISAIAS) Negative Influenza A & B Note See Note 01/22/25 01/22/25 01/22/25 20:43 20:48 20:54 MCV MCH MCHC RDW Plt Count MPV Immature Gran % (Auto) Neut % (Auto) Lymph % (Auto) [place] % (Auto) Eos % (Auto) Baso % (Auto) Lymph # (Auto) [place] # (Auto) Eos # (Auto) Baso # (Auto) Abs Immat Gran (auto) Absolute Neuts (auto) Absolute Nucleated RBC Nucleated RBC % (auto) VBG pH 7.22 L VBG pCO2 27 VBG pO2 64 VBG HCO3 11 L VBG O2 Saturation 87.0 VBG Base Excess -14.3 Anion Gap 25 H Estim Creat Clear Calc 104.9 Estimated GFR > 60 Random Glucose 97 Osmolality Lactic Acid Calcium 7.6 L D Magnesium Total Bilirubin AST ALT Alkaline Phosphatase Troponin I High Sens Total Protein Albumin Lipase Beta-Hydroxybutyrate Beta HCG, Quant Urine Color Yellow Urine Appearance Clear Urine pH 6.0 Ur Specific [place] 1.020 Urine Protein 30 (1+) H Urine Glucose (UA) Negative Urine Ketones >=160 Urine Blood Moderate (2+) H Urine Nitrite Negative Ur Leukocyte Esterase Negative Urine RBC 11-20 H Urine WBC 0-5 Ur Squamous Epith Cells 0-2 Urine Bacteria None Seen Hyaline Casts 0-2 Salicylates Ethyl Alcohol COVID-19 (DEMARCO) COVID-19 Clin Com Influenza Type A (ISAIAS) Influenza Type B (ISAIAS) Influenza A & B Note 01/22/25 01/22/25 23:42 23:48 MCV MCH MCHC RDW Plt Count MPV Immature Gran % (Auto) Neut % (Auto) Lymph % (Auto) [place] % (Auto) Eos % (Auto) Baso % (Auto) Lymph # (Auto) [place] # (Auto) Eos # (Auto) Baso # (Auto) Abs Immat Gran (auto) Absolute Neuts (auto) Absolute Nucleated RBC Nucleated RBC % (auto) VBG pH 7.35 VBG pCO2 22 VBG pO2 106 VBG HCO3 12 L VBG O2 Saturation 100.0 VBG Base Excess -10.7 Anion Gap 22 H Estim Creat Clear Calc 113.0 Estimated GFR > 60 Random Glucose 124 H Osmolality 299 Lactic Acid Calcium 7.9 L Magnesium Total Bilirubin AST ALT Alkaline Phosphatase Troponin I High Sens Total Protein Albumin Lipase Beta-Hydroxybutyrate Beta HCG, Quant Urine Color Urine Appearance Urine pH Ur Specific [place] Urine Protein Urine Glucose (UA) Urine Ketones Urine Blood Urine Nitrite Ur Leukocyte Esterase Urine RBC Urine WBC Ur Squamous Epith Cells Urine Bacteria Hyaline Casts Salicylates < 5.0 L Ethyl Alcohol COVID-19 (DEMARCO) COVID-19 Clin Com Influenza Type A (ISAIAS) Influenza Type B (ISAIAS) Influenza A & B Note Assessment and Plan (1) Alcoholic ketosis: Status: Acute (2) Metabolic acidosis: Status: Acute (3) High anion gap: Status: Acute Plan Massiel Garcia is a 44 y/o woman who presents to the ED with: High anion gap metabolic acidosis secondary to alcoholic ketoacidosis + starvation ketosis; improving. Continue IV hydration with D5. Encourage oral intake as tolerated. Continue to monitor pH, CO2, urine ketones and hydroxybutyrate. Bilateral alcohol or by ED -will follow results. Alcohol abuse. CIWA. Continue thiamine, folic acid and multivitamin. Phenobarbital as needed. Social work and addiction medicine consult. Elevated LFTs, secondary to alcohol abuse. Alcohol abstinence advised. Continue to monitor LFTs. Microscopic hematuria, recent menstrual period. Depression. Many life stressors. Psychiatric consult -Patient interested starting antidepressants meds and stop drinking alcohol. Code status: Full DVT prophylaxis: Lovenox Patient will need hospitalization for at least 2 midnights for severe acidosis secondary to alcohol and starvation treatment with IV fluids and continuous monitoring of vital signs; she also need close monitoring of CIWA for potential withdrawal symptoms. This documentation was generated using dictation software; minor spreading or avionics manager errors may be present. Quality Stroke Does the patient have a stroke diagnosis?: No VTE Prior VTE?: No VTE Risk Level:: Medical - moderate - high VTE Device Contraindication: Treatment Not Indicated VTE Drug Contraindication: N/A - Med Ordered
[2025-01-23] MEDS: Dextrose 5 % and 0.45 % NaCl 1,000 ML 125 ML IVCONT ×3 (01:10→18:46)
[2025-01-23 05:41] VITALS: BP 140/76; PULSE 81; RESP 12; TEMP 36.9; O2SAT 97
[2025-01-23 07:00] LABS: MANUAL DIFF FLAG NO
[2025-01-23 07:09] LABS: Hematocrit 30.7 % (37.0-47.0); Hemoglobin 10.6 g/dl (12.0-16.0); Imm Gran Abs Auto 0.02 X10*3/uL (0.00-0.03); Imm Gran Pct Auto 0.5 % (0.0-0.4); Lymphocytes Absolute Auto 0.7 X10*3/uL (1.2-4.9); Mean Corpuscular HGB Conc 34.5 g/dl (31.0-35.0); Mean Corpuscular Hemoglobin 35.7 pg (27.0-33.0); Mean Corpuscular Volume 103.4 fL (80.0-98.0); NRBC Abs Auto 0.000 X10*3/uL (0.0-0.012); NRBC Pct Auto 0.0 /100WBC (0.0-0.2); Platelet Count 102 X10*3/uL (160-400); Red Blood Count 2.97 X10*6/uL (4.20-5.50); White Blood Count 4.4 X10*3/uL (4.8-10.8)
[2025-01-23 07:28] LABS: Alanine Aminotransferase 35 U/L (0-31); Albumin Level 4.3 g/dL (3.5-5.0); Alkaline Phosphatase 46 U/L (39-117); Anion Gap 15 (12-20); Aspartate Amino Transferase 105 U/L (5-31); Blood Urea Nitrogen 5 mg/dL (9-16); Calcium 7.8 mg/dL (8.4-10.2); Carbon Dioxide 19 mmol/L (22-29); Chloride 105 mmol/L (96-108); Creatinine Clr Calc Pharmacy 111.3; Estimated Glomerular Filt Rate > 60; Magnesium 1.8 mg/dL (1.6-2.6); Potassium 3.4 mmol/L (3.3-5.1); Sodium 136 mmol/L (135-145); Total Protein 6.5 g/dL (6.5-8.0)
[2025-01-23 08:00] VITALS: PULSE 84; RESP 16
--- NOTE | 2025-01-23 08:31 | PHA.MEDREC ---
Pharmacy Consult ? Medication Reconciliation Pharmacy has completed the medication reconciliation.Med rec complete, patient states not taking any medication at home.
--- NOTE | 2025-01-23 08:54 | PM.EVENT ---
Event Note Date of Service: 01/23/25 Event Note: Patient seen and examined by the hospitalist team this morning Seen and examined again seems very little improving Physical and assessment plan as perh&P Continue IV fluids, CIWA protocol, thiamine folic acid, monitor LFTs Psych/addiction evaluation also pending Time Spent With Patient Time: Total time managing care of this patient today ____ minutes.
[2025-01-23] MEDS: 0.9 % Sodium Chloride Flush 3 ML SYRINGE IVFLUSH ×2 (09:13→16:47)
[2025-01-23 09:14] LABS: Ethyl Alcohol g/dL (%) NONE DETECTED g/dL(%) (NONE DETECTED); Ethyl Alcohol mg/dL NONE DETECTED (NONE DETECTED)
[2025-01-23] MEDS: Thiamine HCL 100 MG in 0.9 % Sodium Chloride 100 ML 202 MG IV (09:48)
--- NOTE | 2025-01-23 11:11 | PC.NURSE ---
transferred into hospital bed, denies pain or discomfort. ate small amount for breakfast, mom at bedside
[2025-01-23 12:00] VITALS: PULSE 72; RESP 16
[2025-01-23 15:39] VITALS: BP 177/92; PULSE 94; RESP 18; TEMP 36.8; O2SAT 97
--- NOTE | 2025-01-23 17:36 | P.CNPS_ITS ---
History of Present Illness Date of Service: 01/23/2025 Chief Complaint: Alcoholic and starvation ketosis Reason for Consult: Anxiety and depression Requesting physician: Sulaiman Waggoner Discussed with referring provider: Yes Sources of Information: patient interviewed and chart reviewed HPI Narrative: 44 year old female, lives with partner and 3 children. She presented to the hospital yesterday with the following: Per medicine admission note. Massiel Garcia is a very pleasant 44 years old woman with history of depression and anxiety, not currently taking medications presents to the emergency department after she almost fainted today upon standing up while watching daughter melvi ospina. She also mentioned that she vomited in the morning. Since she has been feeling tired and has been sleeping more than usual. Denied worsening diarrhea, but her stools has been chronically soft. She reported some mild shortness on breath and denied chest pain. Also had an episode pelvic pain. Her last menstrual period finish last week. She has been very weak and has not been eating well lately. Also reported some weight loss. She drinks vodka daily 8-10 shots. Last alcoholic drink was last night. She denied illicit drug use or tobacco smoking. Abdominal surgery history is remarkable for cholecystectomy. She has a history of nephrolithiasis. Denied bloody urine. Has been having urinary frequency. In the ED, she was found to have hypertension and sinus tachycardia. Temperature and oxygen saturation and normal. Blood workup showed no leukocytosis. Hemoglobin is 12.7, MCV 104.3 and platelets 137. Initial pH was 7.18, then 7.22 -> 7.35. CO2 was initially 9 and most recently, 12. Anion gap is elevated. BUN is 6 and creatinine 0.65. LFTs are elevated. Beta hydroxybutyrate is 9 point 89 and test is negative. Blood osmolality is 299. UA showed protein 1+, blood 2+ and RBC 11-20. Testing for COVID-19, influenza are negative. ED tx: Reglan 5 mg IV, thiamine 100 mg IV, folic acid 1 g IV, bicarb 8.4% 50 mEq IV push, NS 1 L bolus, D5/0.45 100 mL/hour Patient is now admitted to medicine for monitoring. Patient reports she has struggled with anxiety and depression since her teenage years. She reports she has had exacerbation of her anxiety lately. Symptoms include panic attacks, palpitations, tremors, excessive worry, irritability. She has a lot of stresses going on. Financially, her children's old school closed suddenly and had to be moved to a new school that is more expensive than the family were used to paying. Her oldest also was accepted to [employer] which is significantly more than the old school. She reports her boyfriend was laid off from work. His work is unpredictable. Her father has been helping out financially. She reports insomnia and poor appetite. Patient denies SI. Patient has also been drinking excessively. She has had alcohol use disorder since early . She had a OUI age 19, then had 2 OUI's in 2009 and lost her license for 5 years. Hasn't had an OUI since. She had a history of cocaine use in the past. She denies SI She denies psychosis. Past Psychiatric History: She was in treatment for depression and anxiety last was over 2 years ago. When she was 13 she OD'd after a break up. No inpatient. Did a PHP. Used to see a instructor psychiatric aide at her PCP's office. Patient used to be on Klonopin but the ASSEMBLY MEMBER didn't want to continue it. Reports prior history of Lexapro. Medical Evaluation Reviewed: Yes Personal & Social History: Lives in [facility] with boyfriend and 3 children age 15, 12 and 7. 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 Boyfriend works construction. Parents supportive. [facility] Family History: Alcohol use on both sides of the family Substance History: Alcohol current. Past cocaine Trauma History: Denies Diagnostics Vital Signs (24Hr): Vital Signs - 24 hr 01/22/25 20:07 01/23/25 05:41 01/23/25 08:00 Temperature 98.4 F 98.4 F Pulse Rate 106 H 81 84 Respiratory Rate 18 12 16 Blood Pressure 158/62 H 140/76 H Pulse Oximetry 100 97 Oxygen Delivery Method Room Air Room Air 01/23/25 12:00 01/23/25 15:39 Temperature 98.3 F Pulse Rate 72 94 Respiratory Rate 16 18 Blood Pressure 177/92 H Pulse Oximetry 97 Oxygen Delivery Method Room Air BMI result Body Mass Index 27.2 Labs 01/23/25 06:31 01/23/25 06:31 Labs: Laboratory Results - last 48 hr 01/22/25 01/22/25 01/22/25 15:27 18:50 19:00 WBC 7.9 RBC 3.50 L Hgb 12.2 Hct 36.5 L MCV 104.3 H MCH 34.9 H MCHC 33.4 RDW 16.1 H Plt Count 137 L MPV 8.8 L Immature Gran % (Auto) 0.4 Neut % (Auto) 89.5 H Lymph % (Auto) 3.9 L [place] % (Auto) 5.7 Eos % (Auto) 0.0 Baso % (Auto) 0.5 Lymph # (Auto) 0.3 L [place] # (Auto) 0.5 Eos # (Auto) 0.0 Baso # (Auto) 0.0 Abs Immat Gran (auto) 0.03 Absolute Neuts (auto) 7.0 Absolute Nucleated RBC 0.000 Nucleated RBC % (auto) 0.0 VBG pH 7.18 L* VBG pCO2 26 VBG pO2 54 VBG HCO3 10 L VBG O2 Saturation 71.0 VBG Base Excess -16.5 Sodium 138 Potassium 4.7 Chloride 104 Carbon Dioxide 9 L* Anion Gap 30 H BUN 8 L Creatinine 0.64 Estim Creat Clear Calc 114.8 Estimated GFR > 60 Random Glucose 96 Osmolality Lactic Acid 1.3 Calcium 8.2 L Magnesium 2.0 Total Bilirubin 1.6 H AST 188 H ALT 52 H Alkaline Phosphatase 56 Troponin I High Sens < 2.7 Total Protein 8.1 H Albumin 5.1 H Lipase 11 Beta-Hydroxybutyrate 9.89 H Beta HCG, Quant < 2 Urine Color Urine Appearance Urine pH Ur Specific [place] Urine Protein Urine Glucose (UA) Urine Ketones Urine Blood Urine Nitrite Ur Leukocyte Esterase Urine RBC Urine WBC Ur Squamous Epith Cells Urine Bacteria Hyaline Casts Salicylates Ethylene Glycol Volat Analys Perform On Ethyl Alcohol < 10 Ethyl Alcohol mg/dL Ethyl Alcohol g/dL Isopropyl Alc, Quant Acetone Level COVID-19 (DEMARCO) Negative COVID-19 Clin Com See Note Influenza Type A (ISAIAS) Negative Influenza Type B (ISAIAS) Negative Influenza A & B Note See Note 01/22/25 01/22/25 01/22/25 20:43 20:48 20:54 WBC RBC Hgb Hct MCV MCH MCHC RDW Plt Count MPV Immature Gran % (Auto) Neut % (Auto) Lymph % (Auto) [place] % (Auto) Eos % (Auto) Baso % (Auto) Lymph # (Auto) [place] # (Auto) Eos # (Auto) Baso # (Auto) Abs Immat Gran (auto) Absolute Neuts (auto) Absolute Nucleated RBC Nucleated RBC % (auto) VBG pH 7.22 L VBG pCO2 27 VBG pO2 64 VBG HCO3 11 L VBG O2 Saturation 87.0 VBG Base Excess -14.3 Sodium 137 Potassium 4.1 Chloride 107 Carbon Dioxide 9 L* Anion Gap 25 H BUN 6 L Creatinine 0.70 Estim Creat Clear Calc 104.9 Estimated GFR > 60 Random Glucose 97 Osmolality Lactic Acid Calcium 7.6 L D Magnesium Total Bilirubin AST ALT Alkaline Phosphatase Troponin I High Sens Total Protein Albumin Lipase Beta-Hydroxybutyrate Beta HCG, Quant Urine Color Yellow Urine Appearance Clear Urine pH 6.0 Ur Specific [place] 1.020 Urine Protein 30 (1+) H Urine Glucose (UA) Negative Urine Ketones >=160 Urine Blood Moderate (2+) H Urine Nitrite Negative Ur Leukocyte Esterase Negative Urine RBC 11-20 H Urine WBC 0-5 Ur Squamous Epith Cells 0-2 Urine Bacteria None Seen Hyaline Casts 0-2 Salicylates Ethylene Glycol Volat Analys Perform On Ethyl Alcohol Ethyl Alcohol mg/dL Ethyl Alcohol g/dL Isopropyl Alc, Quant Acetone Level COVID-19 (DMEARCO) COVID-19 Clin Com Influenza Type A (ISAIAS) Influenza Type B (ISAIAS) Influenza A & B Note 01/22/25 01/22/25 01/23/25 23:42 23:48 01:25 WBC RBC Hgb Hct MCV MCH MCHC RDW Plt Count MPV Immature Gran % (Auto) Neut % (Auto) Lymph % (Auto) [place] % (Auto) Eos % (Auto) Baso % (Auto) Lymph # (Auto) [place] # (Auto) Eos # (Auto) Baso # (Auto) Abs Immat Gran (auto) Absolute Neuts (auto) Absolute Nucleated RBC Nucleated RBC % (auto) VBG pH 7.35 VBG pCO2 22 VBG pO2 106 VBG HCO3 12 L VBG O2 Saturation 100.0 VBG Base Excess -10.7 Sodium 139 Potassium 4.1 Chloride 109 H Carbon Dioxide 12 L Anion Gap 22 H BUN 6 L Creatinine 0.65 Estim Creat Clear Calc 113.0 Estimated GFR > 60 Random Glucose 124 H Osmolality 299 Lactic Acid Calcium 7.9 L Magnesium Total Bilirubin AST ALT Alkaline Phosphatase Troponin I High Sens Total Protein Albumin Lipase Beta-Hydroxybutyrate Beta HCG, Quant Urine Color Urine Appearance Urine pH Ur Specific [place] Urine Protein Urine Glucose (UA) Urine Ketones Urine Blood Urine Nitrite Ur Leukocyte Esterase Urine RBC Urine WBC Ur Squamous Epith Cells Urine Bacteria Hyaline Casts Salicylates < 5.0 L Ethylene Glycol NONE DETECTED Volat Analys Perform On WHOLE BLOOD Ethyl Alcohol Ethyl Alcohol mg/dL NONE DETECTED Ethyl Alcohol g/dL NONE DETECTED Isopropyl Alc, Quant NONE DETECTED Acetone Level 29 H COVID-19 (DEMARCO) COVID-19 Clin Com Influenza Type A (ISAIAS) Influenza Type B (ISAIAS) Influenza A & B Note 01/23/25 06:31 WBC 4.4 L RBC 2.97 L Hgb 10.6 L Hct 30.7 L MCV 103.4 H MCH 35.7 H MCHC 34.5 RDW 15.9 Plt Count 102 L D MPV 9.0 L Immature Gran % (Auto) 0.5 H Neut % (Auto) 67.9 Lymph % (Auto) 15.7 L [place] % (Auto) 14.5 H Eos % (Auto) 0.9 Baso % (Auto) 0.5 Lymph # (Auto) 0.7 L [place] # (Auto) 0.6 Eos # (Auto) 0.0 Baso # (Auto) 0.0 Abs Immat Gran (auto) 0.02 Absolute Neuts (auto) 3.0 Absolute Nucleated RBC 0.000 Nucleated RBC % (auto) 0.0 VBG pH VBG pCO2 VBG pO2 VBG HCO3 VBG O2 Saturation VBG Base Excess Sodium 136 Potassium 3.4 Chloride 105 Carbon Dioxide 19 L Anion Gap 15 BUN 5 L Creatinine 0.66 Estim Creat Clear Calc 111.3 Estimated GFR > 60 Random Glucose 136 H Osmolality Lactic Acid Calcium 7.8 L Magnesium 1.8 Total Bilirubin 1.3 H AST 105 H ALT 35 H Alkaline Phosphatase 46 Troponin I High Sens Total Protein 6.5 Albumin 4.3 Lipase Beta-Hydroxybutyrate 2.97 H Beta HCG, Quant Urine Color Urine Appearance Urine pH Ur Specific [place] Urine Protein Urine Glucose (UA) Urine Ketones Urine Blood Urine Nitrite Ur Leukocyte Esterase Urine RBC Urine WBC Ur Squamous Epith Cells Urine Bacteria Hyaline Casts Salicylates Ethylene Glycol Volat Analys Perform On Ethyl Alcohol Ethyl Alcohol mg/dL Ethyl Alcohol g/dL Isopropyl Alc, Quant Acetone Level COVID-19 (DEMARCO) COVID-19 Clin Com Influenza Type A (ISAIAS) Influenza Type B (ISAIAS) Influenza A & B Note Mental Status Exam Mental Status Exam Patient Appearance: Appropriate (hospital gown) Patient Orientation: Person, Place, Time and Situation Level of Consciousness: Awake and Appropriate Patient Behavior: Appropriate, Cooperative and Anxious Mood Description: Anxious and Nervous Affect Description: Anxious Patient Cognition Impaired: No Ability to Follow Directions: Excellent Speech Pattern: Clear and Appropriate Memory Description: Intact Hallucinations: None Delusions: Not Present Thought Process: Intact and Linear Thought Content: positive for Intact, positive for Goal Oriented and positive for Linear Depressive Symptoms: Increased Anxiety, Insomnia, Increased Irritability, Difficulty Sleeping, Changes in Appetite and Loss of Energy Medications Medications Current Medications Acetaminophen (Acetaminophen 325 Mg Tablet) 650 mg PO Q6H PRN PRN Reason: Pain, Mild 1-3,fever,headache Calcium Carbonate (Calcium Carbonate 750 Mg Tab.Chew) 750 mg PO Q4H PRN PRN Reason: Heartburn Enoxaparin Sodium (Enoxaparin Sodium 40 Mg/0.4 Ml Syringe) 40 mg SUBCUT Q24H [facility] Last Admin: 01/23/25 09:16 Dose: 40 mg Hydromorphone HCl (Hydromorphone Hcl 1 Mg/Ml Syringe) 0.5 mg IVPUSH Q4H PRN; Protocol PRN Reason: Pain, Severe (Pain Scale 7-10) Dextrose/Sodium Chloride (D51/2ns) 1,000 mls @ 125 mls/hr IVCONT .Q8H [facility] Last Admin: 01/23/25 10:37 Dose: 125 mls/hr Thiamine HCl 100 mg/ Sodium (Chloride) 101 mls @ 202 mls/hr IV DAILY [facility] Last Infusion: 01/23/25 10:36 Dose: Infused Folic Acid 1 mg/ Sodium (Chloride) 50.2 mls @ 100.4 mls/hr IV DAILY [facility] Last Infusion: 01/23/25 09:48 Dose: Infused Magnesium Hydroxide (Milk Of Magnesia 30 Ml Oral.Susp) 30 ml PO DAILY PRN PRN Reason: Constipation Melatonin (Melatonin 3 Mg Tablet) 6 mg PO BEDTIME PRN PRN Reason: Insomnia Multivitamins/Vitamin C (Multivitamin Tablet) 1 tab PO BEDTIME [facility] Ondansetron HCl (Ondansetron Hcl 4 Mg/2 Ml Vial) 4 mg IVPUSH Q8H PRN PRN Reason: Nausea and Vomiting Pantoprazole Sodium (Pantoprazole Sodium 40 Mg/10 Ml Vial) 40 mg IVPUSH BID@0630,1630 [facility] Last Admin: 01/23/25 16:46 Dose: 40 mg Sodium Chloride (0.9 % Sodium Chloride Flush 3 Ml Syringe) 3 ml IVFLUSH QSHIFT [facility] Last Admin: 01/23/25 16:47 Dose: 3 ml Allergies Allergies Allergy/AdvReac Type Severity Reaction Status Date / Time No Known Allergies Allergy Unverified 01/22/25 14:59 Assessment & Plan Assessment & Plan (1) Generalized anxiety disorder: Status: Acute Code(s): F41.1 - Generalized anxiety disorder (2) Alcohol dependence: Status: Acute Code(s): F10.20 - Alcohol dependence, uncomplicated Plan 44 yo female admitted to the hospital with alcohol related GI symptoms and acidosis. She reports chronic anxiety but she hasn't been in treatment. She is going through financial and family related stress. She is interested in restarting medications. Recommedations: - Priority now is watching for the development of acute withdrawal symptoms and treat accordingly. ANA ROSA. - After patient medically stabilized and GI symptoms under control, can start Sertraline 50 mg daily - Hydroxyzine 25 mg up to BID PRN acute anxiety - Addiction medicine consultation. Total time managing care of this patient today ____ minutes. Patient educated on: diagnosis, medication risk/benefits and substance abuse
--- NOTE | 2025-01-23 17:57 | MHC.RECOVRN ---
Patient had a positive screen for unhealthy alcohol use on admission, subsequently, met with pt to discuss alcohol use, recovery supports, and concerns related to increased risk of alcohol related problems. On approach pt was sitting in bed. She denies current withdrawal symptoms and reports being ?cold and tired? Pt agreed to meet with TW and was pleasant, calm, and engaged during the interview.? Pt reports consuming about 10-12 shots of vodka, typically from 3-9pm daily for several years with her last drink being 01/21/25. ?I don?t usually sleep, I more like, pass out?. Pt educated on the effects alcohol has on sleep and the importance of proper sleep hygiene.? Pt states she will often experience tremors, nausea, and hot/cold flashes when she awakens in the night and will often have an additional shot of vodka. She also reports that at approximately 1pm daily she begins to feel tremulous. She denies using alcohol at work.? Pt reports her primary goal is to remain abstinent from alcohol. She states in the past she has been to programs in [place] and [place] and currently has 3 OUI?s. 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 Discussed how alcohol use has impacted health, including negative impact on mental health and overall physical well being.? Discussed risk and reduction strategies including drinking below the recommended limit.? Provided pt with written resources including information on inpatient and outpatient treatment, YADIEL, harm reduction, recovery coaching and discussed multiple pathways of recovery? 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 declines intervention, YADIEL, or outpatient appt for treatment related to AUD at this time.? Pt was provided with TW?s contact information if questions or concerns arise which she denies at this time.?
[2025-01-23 22:47] VITALS: BP 158/72; PULSE 84; RESP 16; TEMP 36.6; O2SAT 98
[2025-01-24] MEDS: Dextrose 5 % and 0.45 % NaCl 1,000 ML 125 ML IVCONT (03:43)
[2025-01-24 06:04] VITALS: BP 151/81; PULSE 75; RESP 10; TEMP 36.9; O2SAT 98
[2025-01-24] MEDS: 0.9 % Sodium Chloride Flush 3 ML SYRINGE IVFLUSH (07:32)
[2025-01-24] MEDS: Thiamine HCL 100 MG in 0.9 % Sodium Chloride 100 ML 200 MG IV (09:08)
--- NOTE | 2025-01-24 09:37 | MHC.CM.PN ---
CM met with Patient at bedside, in the ED. Patient lives in a house with her Partner and 3 Children ages 7,11,&15 years of age.Patient has the paperwork to fill out to name a HCP Agent but she has not done it as of yet. Patient may benefit from a Recovery Team Consult R/T ETOH; CM has initiated and will follow for dc planning. PCP/SEMICONDUCTOR MANUFACTURING TECHNICIAN is Donna Ramos and Patient's Parents will transport to home at dc.
[2025-01-24 10:20] VITALS: BMI 28.7
[2025-01-24 10:27] LABS: Anion Gap 14 (12-20); Blood Urea Nitrogen < 3 mg/dL (9-16); Calcium 8.4 mg/dL (8.4-10.2); Carbon Dioxide 28 mmol/L (22-29); Chloride 98 mmol/L (96-108); Creatinine Clr Calc Pharmacy 147.6; Estimated Glomerular Filt Rate > 60; Potassium 3.1 mmol/L (3.3-5.1); Sodium 137 mmol/L (135-145)
--- NOTE | 2025-01-24 11:06 | PM.DS ---
DS: Providers Provider Date of Service: 01/24/25 Date of admission: 01/23/25 00:52 Date of discharge: 01/24/25 Primary care physician: Donna Ramos NP Consults: 01/23/25 00:55 Addiction Medicine Provider Routine Consulting Provider: Addiction Covering Reason for consultation: Alcohol abuse Has provider been notified: No Consult to Psychiatry Routine Consulting Provider: [facility] Reason for consultation: Depression, anxiety, alcohol abuse Has provider been notified: No DS: Diagnosis Discharge Diagnosis (1) Generalized anxiety disorder: Status: Acute (2) Alcohol dependence: Status: Acute DS: Summary Hospital Course Hospital Course: HPI: 44 years old woman with history of depression and anxiety, not currently taking medications presents to the emergency department after she almost fainted today upon standing up while watching [employer]. She also mentioned that she vomited in the morning. Since she has been feeling tired and has been sleeping more than usual. Denied worsening diarrhea, but her stools has been chronically soft. She reported some mild shortness on breath and denied chest pain. Also had an episode pelvic pain. Her last menstrual period finish last week. She has been very weak and has not been eating well lately. Also reported some weight loss. She drinks vodka daily 8-10 shots. Last alcoholic drink was last night. She denied illicit drug use or tobacco smoking. Abdominal surgery history is remarkable for cholecystectomy. She has a history of nephrolithiasis. Denied bloody urine. Has been having urinary frequency. In the ED, she was found to have hypertension and sinus tachycardia. Temperature and oxygen saturation and normal. Blood workup showed no leukocytosis. Hemoglobin is 12.7, MCV 104.3 and platelets 137. Initial pH was 7.18, then 7.22 -> 7.35. CO2 was initially 9 and most recently, 12. Anion gap is elevated. BUN is 6 and creatinine 0.65. LFTs are elevated. Beta hydroxybutyrate is 9 point 89 and test is negative. Blood osmolality is 299. UA showed protein 1+, blood 2+ and RBC 11-20. Testing for COVID-19, influenza are negative. ED tx: Reglan 5 mg IV, thiamine 100 mg IV, folic acid 1 g IV, bicarb 8.4% 50 mEq IV push, NS 1 L bolus, D5/0.45 100 mL/hour. Hospital course: 44 y/o woman who presents to the ED with: Patient was admitted for alcohol withdrawal and High anion gap metabolic acidosis secondary to alcoholic ketoacidosis + starvation ketosis, also had acute hypokalemia: ct abd :1. Hiatal hernia.2. Hepatic steatosis.3. Segmental mural thickening of the ascending and transverse colon; nonspecific colitis (bacterial colitis versus inflammatory bowel disease:Started on IV fluids, phenobarb protocol, potassium repleted: With the above management anion gap seems to be improved, patient is tolerating diet, walking fine. Mild hypokalemia patient also received potassium this morning. Patient is tolerating diet, no abdominal pain or nausea vomiting or diarrhea. anemia macrocytic : h/h slightly down,possible mild dilution vs liver dis . Patient denies any melena or any javy bleeding in the stool. moniter cbc. Further workup outpatient. Elevated LFTs, likely secondary to alcohol abuse. Alcohol abstinence advised. LFTs improving ct abd: hepatic stetosis. Microscopic hematuria, recent menstrual period. Consider outpatient repeat UA. Depression. Many life stressors. Psychiatric consult -psychiatric recommended to add sertraline 50 mg p.o. q.d. In addition seen by addiction team added naltrexone. plan: Consider repeating UA outpatient as well as Monitor LFTs and BMP, cbc in 1 week. Sertraline 50 mg q.d. naltrexone as prescribed. potassium 8 meq po qd x4 days. Omeprazole 20 mg p.o. daily, thiamine 100 mg p.o. daily, folic acid 1 mg p.o. daily. Consider outpatient psychiatric follow-up if needed. Above management discussed with the patient in detail length she understand and in agreement with the above plan, time spent 45 minute. Time Attestation Total time managing care of this patient today: 45 mintues. Discharge Coordination Time (in mins): 45 min Quality: Safe Use of Opioids Does Pt have an Active Cancer Diagnosis on the Problem List?: No Quality: Stroke Does the patient have a stroke diagnosis?: No Physical Exam Exam: Exam: Appearance: Alert.? Oriented X3. cvs: rrr, [id number] , no murmur res: clear to auscultation ,no rhonchii or wheezing abd: no rebound or guarding ,nt, bs present. ext pulses present , no cyanosis . neuro: axo3 , nonfocal. Vital Signs: Vital Signs: Last Vital Signs Temp 98.4 F 10/20/25 06:04 Pulse 75 01/24/25 06:04 Resp 10 L 01/24/25 06:04 BP 151/81 H 01/24/25 06:04 Pulse Ox 98 01/24/25 06:04 O2 Del Method Room Air 01/24/25 06:04 BMI result Body Mass Index 28.7 DS: Data Data Completed and Pending Labs on day of discharge: Laboratory Results - last 24 hr 01/22/25 01/24/25 23:42 09:44 Sodium 137 Potassium 3.1 L Chloride 98 Carbon Dioxide 28 Anion Gap 14 BUN < 3 L Creatinine 0.51 Estim Creat Clear Calc 147.6 Estimated GFR > 60 Random Glucose 145 H Calcium 8.4 D Methyl Alcohol Level NONE DETECTED Preliminary micro results at discharge 01/22/25 19:24 Blood Culture - Preliminary Blood - Venous No growth after 24 hours. 01/22/25 18:50 Blood Culture - Preliminary Blood - Venous No growth after 24 hours. Imaging Chest x-ray: Radiologist's impression: ct abd: 1. Hiatal hernia. 2. Hepatic steatosis. 3. Segmental mural thickening of the ascending and transverse colon; nonspecific colitis (bacterial colitis versus inflammatory bowel disease). Discharge Plan Discharge Anticipated Discharge Date/Time: 01/24/25 10:52 Patient Disposition: Home, Self-Care Discharge Diagnosis: Alcohol withdrawal, hypokalemia. Referrals: [facility] [Provider Group, Addiction Medicine] - 3-5 Days Referral Note: Per your request no appointment has been made. Please call [phone] to make an appointment at a time that works for you. You can also walk-in Friday- 8-4:30pm & Friday 10-4:30pm. Problems: Alcohol dependence Donna Ramos NP [Primary Care Provider, Internal Medicine] - 1 Week Discharge Medications: New thiamine HCl (vitamin B1) 100 mg capsule 100 mg PO DAILY Qty: 30 0RF folic acid 1 mg tablet 1 mg PO DAILY Qty: 30 0RF omeprazole 20 mg capsule,delayed release(DR/EC) 20 mg PO DAILY Qty: 60 0RF sertraline 50 mg Tablet 50 mg PO DAILY Qty: 90 0RF potassium chloride 8 mEq capsule, extended release 8 meq PO DAILY Qty: 4 0RF naltrexone 50 mg tablet 50 mg PO DAILY Qty: 30 0RF Rx Instructions: take 1/2 tab daily for three days, then increase to one tab daily gabapentin 100 mg Capsule 100 mg PO BID Qty: 20 0RF Discharge Orders: Discharge Order (Routine); Ordered 01/24/25 Ordered By: Sulaiman Waggoner Diet: Advance to usual diet Activity on Discharge: As tolerated Stand Alone Forms: Patient Portal Discharge page Print Language: Venezuelan Other Ambulatory Orders: Complete Blood Count no Diff (Routine) Timeframe: 1 Week Facility: [facility] - Location: Laboratory Ordered By: Sulaiman Waggoner Comprehensive Met. Panel (Routine) Timeframe: 1 Week Facility: [facility] - Location: Laboratory Ordered By: Sulaiman Waggoner Care Plan Goals: as below. Health Concerns: Consider repeating UA outpatient as well as Monitor LFTs and BMP in 1 week. Sertraline 50 mg q.d. naltrexone as prescribed. Omeprazole 20 mg p.o. daily, thiamine 100 mg p.o. daily, folic acid 1 mg p.o. daily. Consider outpatient psychiatric follow-up if needed. Plan of Treatment: As above. Assessment: As above.
[2025-01-24 11:29] LABS: Hemoglobin A1C 75.0397 umol/L; Total Hemoglobin (HGBA1C) 2823.6754 umol/L
--- NOTE | 2025-01-24 11:29 | HO.ADDICT_ITS ---
History of Present Illness Date of Service: 01/24/2025 Chief Complaint: Alcoholic and starvation ketosis Reason for Consult: AUD Sources of Information: patient interviewed and chart reviewed HPI Narrative: Patient is a 44 year old female who has been medically admitted with alcohol related ketosis. Chart reviewed, not scoring on CIWA,. Seen in room 13 of main ED. Patient is awake, alert, engaged in interview. She reports long history of AUD with few periods of abstinence, when . Most recently she states that she has been drinking 8 shots of vodka every evening once shes home. She notes an increase in amount of alcohol over the last few weeks in response to stress. Previously had been drinking a few beers a night. Denies any history of withdrawal or treatment Reports poor appetite-sometimes going 3 days without eating Poor sleep, increasing anxiety Denies any other substance use. Denies any withdrawal sx, but does report feeling anxious No tremor noted, no diaphoresis or restlessness Denies nausea/vomiting Labs reviewed Past Psychiatric History: She was in treatment for depression and anxiety last was over 2 years ago. When she was 13 she OD'd after a break up. No inpatient. Did a PHP. Used to see a psychologist personnel at her PCP's office. Patient used to be on Klonopin but the DICE TABLE PERSON didn't want to continue it. Reports prior history of Lexapro. Medical Evaluation Reviewed: Yes Review of Systems Constitutional: Reports as per HPI Diagnostics Vital Signs (24Hr): Vital Signs - 24 hr 01/23/25 12:00 01/23/25 15:39 01/23/25 22:47 Temperature 98.3 F 98 F Pulse Rate 72 94 84 Respiratory Rate 16 18 16 Blood Pressure 177/92 H 158/72 H Pulse Oximetry 97 98 Oxygen Delivery Method Room Air Room Air 01/24/25 06:04 Temperature 98.4 F Pulse Rate 75 Respiratory Rate 10 L Blood Pressure 151/81 H Pulse Oximetry 98 Oxygen Delivery Method Room Air BMI result Body Mass Index 28.7 Labs 01/23/25 06:31 01/24/25 09:44 Labs: Laboratory Results - last 48 hr 01/22/25 01/22/25 01/22/25 15:27 18:50 19:00 WBC 7.9 RBC 3.50 L Hgb 12.2 Hct 36.5 L MCV 104.3 H MCH 34.9 H MCHC 33.4 RDW 16.1 H Plt Count 137 L MPV 8.8 L Immature Gran % (Auto) 0.4 Neut % (Auto) 89.5 H Lymph % (Auto) 3.9 L [place] % (Auto) 5.7 Eos % (Auto) 0.0 Baso % (Auto) 0.5 Lymph # (Auto) 0.3 L [place] # (Auto) 0.5 Eos # (Auto) 0.0 Baso # (Auto) 0.0 Abs Immat Gran (auto) 0.03 Absolute Neuts (auto) 7.0 Absolute Nucleated RBC 0.000 Nucleated RBC % (auto) 0.0 VBG pH 7.18 L* VBG pCO2 26 VBG pO2 54 VBG HCO3 10 L VBG O2 Saturation 71.0 VBG Base Excess -16.5 Sodium 138 Potassium 4.7 Chloride 104 Carbon Dioxide 9 L* Anion Gap 30 H BUN 8 L Creatinine 0.64 Estim Creat Clear Calc 114.8 Estimated GFR > 60 Random Glucose 96 Estimat Average Glucose Hemoglobin A1c % Osmolality Lactic Acid 1.3 Calcium 8.2 L Magnesium 2.0 Total Bilirubin 1.6 H AST 188 H ALT 52 H Alkaline Phosphatase 56 Troponin I High Sens < 2.7 Total Protein 8.1 H Albumin 5.1 H Lipase 11 Beta-Hydroxybutyrate 9.89 H Beta HCG, Quant < 2 Urine Color Urine Appearance Urine pH Ur Specific [place] Urine Protein Urine Glucose (UA) Urine Ketones Urine Blood Urine Nitrite Ur Leukocyte Esterase Urine RBC Urine WBC Ur Squamous Epith Cells Urine Bacteria Hyaline Casts Salicylates Ethylene Glycol Volat Analys Perform On Ethyl Alcohol < 10 Ethyl Alcohol mg/dL Ethyl Alcohol g/dL Methyl Alcohol Level Isopropyl Alc, Quant Acetone Level COVID-19 (DEMARCO) Negative COVID-19 Clin Com See Note Influenza Type A (ISAIAS) Negative Influenza Type B (ISAIAS) Negative Influenza A & B Note See Note 01/22/25 01/22/25 01/22/25 20:43 20:48 20:54 WBC RBC Hgb Hct MCV MCH MCHC RDW Plt Count MPV Immature Gran % (Auto) Neut % (Auto) Lymph % (Auto) [place] % (Auto) Eos % (Auto) Baso % (Auto) Lymph # (Auto) [place] # (Auto) Eos # (Auto) Baso # (Auto) Abs Immat Gran (auto) Absolute Neuts (auto) Absolute Nucleated RBC Nucleated RBC % (auto) VBG pH 7.22 L VBG pCO2 27 VBG pO2 64 VBG HCO3 11 L VBG O2 Saturation 87.0 VBG Base Excess -14.3 Sodium 137 Potassium 4.1 Chloride 107 Carbon Dioxide 9 L* Anion Gap 25 H BUN 6 L Creatinine 0.70 Estim Creat Clear Calc 104.9 Estimated GFR > 60 Random Glucose 97 Estimat Average Glucose Hemoglobin A1c % Osmolality Lactic Acid Calcium 7.6 L D Magnesium Total Bilirubin AST ALT Alkaline Phosphatase Troponin I High Sens Total Protein Albumin Lipase Beta-Hydroxybutyrate Beta HCG, Quant Urine Color Yellow Urine Appearance Clear Urine pH 6.0 Ur Specific [place] 1.020 Urine Protein 30 (1+) H Urine Glucose (UA) Negative Urine Ketones >=160 Urine Blood Moderate (2+) H Urine Nitrite Negative Ur Leukocyte Esterase Negative Urine RBC 11-20 H Urine WBC 0-5 Ur Squamous Epith Cells 0-2 Urine Bacteria None Seen Hyaline Casts 0-2 Salicylates Ethylene Glycol Volat Analys Perform On Ethyl Alcohol Ethyl Alcohol mg/dL Ethyl Alcohol g/dL Methyl Alcohol Level Isopropyl Alc, Quant Acetone Level COVID-19 (DEMARCO) COVID-19 Clin Com Influenza Type A (ISAIAS) Influenza Type B (ISAIAS) Influenza A & B Note 01/22/25 01/22/25 01/23/25 23:42 23:48 01:25 WBC RBC Hgb Hct MCV MCH MCHC RDW Plt Count MPV Immature Gran % (Auto) Neut % (Auto) Lymph % (Auto) [place] % (Auto) Eos % (Auto) Baso % (Auto) Lymph # (Auto) [place] # (Auto) Eos # (Auto) Baso # (Auto) Abs Immat Gran (auto) Absolute Neuts (auto) Absolute Nucleated RBC Nucleated RBC % (auto) VBG pH 7.35 VBG pCO2 22 VBG pO2 106 VBG HCO3 12 L VBG O2 Saturation 100.0 VBG Base Excess -10.7 Sodium 139 Potassium 4.1 Chloride 109 H Carbon Dioxide 12 L Anion Gap 22 H BUN 6 L Creatinine 0.65 Estim Creat Clear Calc 113.0 Estimated GFR > 60 Random Glucose 124 H Estimat Average Glucose Hemoglobin A1c % Osmolality 299 Lactic Acid Calcium 7.9 L Magnesium Total Bilirubin AST ALT Alkaline Phosphatase Troponin I High Sens Total Protein Albumin Lipase Beta-Hydroxybutyrate Beta HCG, Quant Urine Color Urine Appearance Urine pH Ur Specific [place] Urine Protein Urine Glucose (UA) Urine Ketones Urine Blood Urine Nitrite Ur Leukocyte Esterase Urine RBC Urine WBC Ur Squamous Epith Cells Urine Bacteria Hyaline Casts Salicylates < 5.0 L Ethylene Glycol NONE DETECTED Volat Analys Perform On WHOLE BLOOD Ethyl Alcohol Ethyl Alcohol mg/dL NONE DETECTED Ethyl Alcohol g/dL NONE DETECTED Methyl Alcohol Level NONE DETECTED Isopropyl Alc, Quant NONE DETECTED Acetone Level 29 H COVID-19 (DEMARCO) COVID-19 Clin Com Influenza Type A (ISAIAS) Influenza Type B (ISAIAS) Influenza A & B Note 01/23/25 01/24/25 01/24/25 06:31 06:31 09:44 WBC 4.4 L RBC 2.97 L Hgb 10.6 L Hct 30.7 L MCV 103.4 H MCH 35.7 H MCHC 34.5 RDW 15.9 Plt Count 102 L D MPV 9.0 L Immature Gran % (Auto) 0.5 H Neut % (Auto) 67.9 Lymph % (Auto) 15.7 L [place] % (Auto) 14.5 H Eos % (Auto) 0.9 Baso % (Auto) 0.5 Lymph # (Auto) 0.7 L [place] # (Auto) 0.6 Eos # (Auto) 0.0 Baso # (Auto) 0.0 Abs Immat Gran (auto) 0.02 Absolute Neuts (auto) 3.0 Absolute Nucleated RBC 0.000 Nucleated RBC % (auto) 0.0 VBG pH VBG pCO2 VBG pO2 VBG HCO3 VBG O2 Saturation VBG Base Excess Sodium 136 137 Potassium 3.4 3.1 L Chloride 105 98 Carbon Dioxide 19 L 28 Anion Gap 15 14 BUN 5 L < 3 L Creatinine 0.66 0.51 Estim Creat Clear Calc 111.3 147.6 Estimated GFR > 60 > 60 Random Glucose 136 H 145 H Estimat Average Glucose 85 Hemoglobin A1c % 4.6 Osmolality Lactic Acid Calcium 7.8 L 8.4 D Magnesium 1.8 Total Bilirubin 1.3 H AST 105 H ALT 35 H Alkaline Phosphatase 46 Troponin I High Sens Total Protein 6.5 Albumin 4.3 Lipase Beta-Hydroxybutyrate 2.97 H Beta HCG, Quant Urine Color Urine Appearance Urine pH Ur Specific [place] Urine Protein Urine Glucose (UA) Urine Ketones Urine Blood Urine Nitrite Ur Leukocyte Esterase Urine RBC Urine WBC Ur Squamous Epith Cells Urine Bacteria Hyaline Casts Salicylates Ethylene Glycol Volat Analys Perform On Ethyl Alcohol Ethyl Alcohol mg/dL Ethyl Alcohol g/dL Methyl Alcohol Level Isopropyl Alc, Quant Acetone Level COVID-19 (DEMARCO) COVID-19 Clin Com Influenza Type A (ISAIAS) Influenza Type B (ISAIAS) Influenza A & B Note Mental Status Exam Mental Status Exam Level of Consciousness: Awake, Appropriate and Alert Patient Behavior: Appropriate and Cooperative Affect Description: Calm Speech Pattern: Clear Hallucinations: None Thought Process: Intact Thought Content: positive for Intact Judgement: Good Medications Medications Current Medications Acetaminophen (Acetaminophen 325 Mg Tablet) 650 mg PO Q6H PRN PRN Reason: Pain, Mild 1-3,fever,headache Calcium Carbonate (Calcium Carbonate 750 Mg Tab.Chew) 750 mg PO Q4H PRN PRN Reason: Heartburn Gabapentin (Gabapentin 100 Mg Capsule) 100 mg PO BID [facility] Hydromorphone HCl (Hydromorphone Hcl 1 Mg/Ml Syringe) 0.5 mg IVPUSH Q4H PRN; Protocol PRN Reason: Pain, Severe (Pain Scale 7-10) Thiamine HCl 100 mg/ Sodium (Chloride) 101 mls @ 202 mls/hr IV DAILY [facility] Last Admin: 01/24/25 09:08 Dose: 200 mls/hr Folic Acid 1 mg/ Sodium (Chloride) 50.2 mls @ 100.4 mls/hr IV DAILY [facility] Last Infusion: 01/23/25 09:48 Dose: Infused Magnesium Hydroxide (Milk Of Magnesia 30 Ml Oral.Susp) 30 ml PO DAILY PRN PRN Reason: Constipation Melatonin (Melatonin 3 Mg Tablet) 6 mg PO BEDTIME PRN PRN Reason: Insomnia Multivitamins/Vitamin C (Multivitamin Tablet) 1 tab PO BEDTIME [facility] Last Admin: 01/23/25 22:35 Dose: 1 tab Ondansetron HCl (Ondansetron Hcl 4 Mg/2 Ml Vial) 4 mg IVPUSH Q8H PRN PRN Reason: Nausea and Vomiting Last Admin: 01/24/25 07:31 Dose: 4 mg Pantoprazole Sodium (Pantoprazole Sodium 40 Mg/10 Ml Vial) 40 mg IVPUSH BID@0630,1630 [facility] Last Admin: 01/24/25 07:31 Dose: 40 mg Sertraline HCl (Sertraline Hcl 50 Mg Tablet) 50 mg PO DAILY [facility] Sodium Chloride (0.9 % Sodium Chloride Flush 3 Ml Syringe) 3 ml IVFLUSH QSHIFT [facility] Last Admin: 01/24/25 07:32 Dose: 3 ml Allergies Allergies Allergy/AdvReac Type Severity Reaction Status Date / Time No Known Allergies Allergy Unverified 01/22/25 14:59 Assessment & Plan Assessment & Plan (1) Alcohol use disorder, severe, dependence: Status: Acute Code(s): F10.20 - Alcohol dependence, uncomplicated Assessment and Plan: * gabapentin 100mg BID while here to address anxiety - no concern for withdrawal since admission * agreeable to Naltrexone trial -discussed dosing, goals of treatment and side effects * 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 PMFSH Social History Social History Household Members: Significant Other and Children Housing: House Do you presently have visiting nurse or other home services: No Patient Tobacco Use Status: Former Tobacco user Tobacco use type: Cigarette Smoked in Last 30 Days: No e-Cigarette/Vaping Use: Former Use Use of substances other than those prescribed or required for medical reasons: No Have you been hit, kicked, punched, or otherwise hurt by someone within the past year? If so, by whom?: No Do you feel safe in your current relationship?: Yes Is there a partner from a previous relationship who is making you feel unsafe now?: No Are you made to feel afraid or neglected: No Advance Directives: No Advance Directives Information Provided: Yes Advance Directives on File: No Do you have a plan to hurt others: No Plan Recently lost weight without trying: Yes How much weight loss: 14-23 pounds Eating poorly because of decreased appetite: Yes Nutrition screen score: 5 Nutrition Risks: Poor intake 0-25% >4 days Patient : No : No Poor oral hygiene: No service: No
--- NOTE | 2025-01-24 11:56 | MHC.CM.PN ---
Patient has been medically cleared for dc to home today, self care.
[2025-01-24] MEDS: Potassium Chloride ER 20 MEQ TAB.ER.PRT 40 MEQ PO (12:55)
[2025-01-24 12:56] VITALS: BP 148/83; PULSE 81; RESP 12; TEMP 36.8; O2SAT 96
== END 2025-01-24 13:10 | disposition home or self-care (01) | DRG 775 ==
LOC: HO.ED 01-23 00:35 → HO.EDOVER 01-23 01:02
PROVIDERS: Admitting Provider Internal Medicine; Emergency Provider Student in an Organized Health Care Education/Training Program; PCP Nurse Practitioner Family; Visit Provider Internal Medicine
DX: F10.239 Alcohol dependence with withdrawal, unspecified (principal); E87.29 Other acidosis; K76.0 Fatty (change of) liver, not elsewhere classified; D53.9 Nutritional anemia, unspecified; F32.A Depression, unspecified; E87.6 Hypokalemia; Z56.0 Unemployment, unspecified; F41.1 Generalized anxiety disorder; Z20.822 Contact with and (suspected) exposure to COVID-19; Z79.899 Other long term (current) drug therapy
CPT/HCPCS: 36415; 74177; 80048; 80053; 80179; 80307; 80320; 81001; 81003; 82010; 82693; 82803; 83036; 83605; 83690; 83735; 83930; 84484; 84702; 85025; 87040; 87502; 87635; 93005; 99222; 99285; J1650; J1808; J2405; J2470; J2765; J3411; Q9967; S9485

== ENCOUNTER → 2025-01-22 15:29 | Outpatient (BNV) | payer MEDICAID, SELFPAY | PROVIDERS: Admitting Provider Internal Medicine; Emergency Provider Student in an Organized Health Care Education/Training Program; PCP Nurse Practitioner Family; Visit Provider Internal Medicine Cardiovascular Disease | DX: R00.0 Tachycardia, unspecified (principal) | CPT/HCPCS: 93010 ==

== ENCOUNTER → 2025-01-22 18:41 | Outpatient (BNV) | payer MEDICAID, SELFPAY | PROVIDERS: Emergency Provider Student in an Organized Health Care Education/Training Program; PCP Nurse Practitioner Family; Visit Provider Radiology Diagnostic Radiology | DX: K44.9 Diaphragmatic hernia without obstruction or gangrene (principal); K76.0 Fatty (change of) liver, not elsewhere classified | CPT/HCPCS: 74177 ==

== ENCOUNTER → 2025-01-23 00:52 | Outpatient (BNV) | payer MEDICAID, SELFPAY | PROVIDERS: Admitting Provider Internal Medicine; Emergency Provider Student in an Organized Health Care Education/Training Program; PCP Nurse Practitioner Family; Visit Provider Internal Medicine | DX: F41.1 Generalized anxiety disorder (principal); F10.20 Alcohol dependence, uncomplicated | CPT/HCPCS: 99223; 99239; 99499 ==

== ENCOUNTER → 2025-01-23 00:52 | Outpatient (BNV) | payer OTHER, SELFPAY | PROVIDERS: Admitting Provider Internal Medicine; Emergency Provider Student in an Organized Health Care Education/Training Program; PCP Nurse Practitioner Family; Visit Provider Psychiatry & Neurology Psychiatry | DX: F41.1 Generalized anxiety disorder (principal); F10.20 Alcohol dependence, uncomplicated | CPT/HCPCS: 99223 ==